=== PATIENT | female | born 1955 | race Caucasian/White ===

== ENCOUNTER 2018-11-07 15:07 | Emergency (ER) | payer MEDICARE, MEDICAID ==
[2018-11-07] MEDS ORDERED: Sodium Chloride 0.9% 10 ML Syringe FLUSH PRN (15:09)
[2018-11-07 15:57] LABS: ANION GAP 14.4; CHLORIDE,CL 102 mmol/L (101-111); SODIUM,NA 137 mmol/L (135-145)
[2018-11-07 16:24] VITALS: BP 102/51
[2018-11-07] MEDS ORDERED: Sodium Chloride 0.9% 500 ML IV SCH (16:30)
--- NOTE | 2018-11-07 17:06 | EDM.PDOC ---
Scribed by Vandana Aden 11/07/18 1538 for Mg Harvey MD <Margo Curtis R - Last Filed: 11/07/18 16:50> ED HPI GENERAL MEDICAL PROBLEM - General Chief Complaint: Neurological Problem Stated Complaint: UNKNOWN-AMBULANCE Time Seen by Provider: 11/07/18 15:07 - Related Data Allergies Allergy/AdvReac Type Severity Reaction Status Date / Time codeine Allergy Fatigue Verified 11/07/18 15:17 lactose Allergy Abdominal Verified 11/07/18 15:17 Pain tramadol Allergy Nausea Verified 11/07/18 15:17 Home Meds: Home Meds Aspirin [Halfprin] 81 mg PO BRK 03/02/15 [History] Cyclobenzaprine [Flexeril] 10 mg PO BEDTIME 03/02/15 [History] Fexofenadine [[place]] 180 mg PO DAILY 03/02/15 [History] Gabapentin [Neurontin] 300 mg PO BID 03/02/15 [History] Insulin Detemir [Levemir] 70 unit SQ BEDTIME 03/02/15 [History] Omeprazole [Prilosec] 20 mg PO BID 03/02/15 [History] metFORMIN HCl [Metformin HCl] 1,000 mg PO BID 03/02/15 [History] Benzonatate [Tessalon Perles] 100 mg PO TID PRN 09/22/16 [History] Course - Vital Signs Last Recorded V/S: Last Vital Signs Temp 36.6 C 11/07/18 15:09 Pulse 62 11/07/18 16:24 Resp 8 L 11/07/18 16:24 BP 102/51 L 11/07/18 16:24 Pulse Ox 94 L 11/07/18 16:24 - Orders/Labs/Meds Orders: Active Orders 24 hr Category Date Time Status Blood Glucose Check, Bedside [RC] ONETIME Care 11/07/18 15:09 Active EKG 12 Lead [EKG Documentation Completion] [RC] STAT Care 11/07/18 15:09 Active Peripheral IV Care [RC] . DIRECTED Care 11/07/18 15:10 Active CULTURE URINE [RM] Stat Lab 11/07/18 15:37 Received Sodium Chloride 0.9% [Normal Saline] 500 ml Med 11/07/18 16:30 Active IV .BOLUS Sodium Chloride 0.9% [Saline Flush] Med 11/07/18 15:09 Active 10 ml FLUSH ASDIRECTED PRN Peripheral IV Insertion Adult [OM.PC] Stat Oth 11/07/18 15:09 Ordered Medication Orders Sodium Chloride (Normal Saline) 500 mls @ 999 mls/hr IV .BOLUS KEITH Last Admin: 11/07/18 16:22 Dose: 999 mls/hr Sodium Chloride (Saline Flush) 10 ml FLUSH ASDIRECTED PRN PRN Reason: Keep Vein Open Last Admin: 11/07/18 15:28 Dose: 10 ml Labs: Laboratory Tests 11/07/18 11/07/18 11/07/18 Range/Units 15:30 15:30 15:30 WBC 4.6 L (5.0-10.0) 10^3/uL RBC 3.77 L (4.2-5.4) 10^6/uL Hgb 11.2 L (12.0-16.0) g/dL Hct 35.2 L (37.0-47.0) % MCV 93.4 D (80-100) fL MCH 29.7 (27.0-34.0) pg MCHC 31.8 L (33.0-35.0) g/dL Plt Count 108 L (150-450) 10^3/uL Neut % (Auto) 59.7 (42.2-75.2) % Lymph % (Auto) 26.7 (20.5-50.1) % Henry % (Auto) 13.4 H (2-8) % Eos % (Auto) 0.0 L (1.0-3.0) % Baso % (Auto) 0.2 (0.0-1.0) % PT 14.6 H (9.0-12.0) SEC INR 1.5 H (0.9-1.2) APTT 25.7 (22.0-34.0) SEC Sodium 137 (135-145) mmol/L Potassium 3.4 L (3.6-5.0) mmol/L Chloride 102 (101-111) mmol/L Carbon Dioxide 24.0 (21.0-31.0) mmol/L Anion Gap 14.4 BUN 21 H (7-18) mg/dL Creatinine 0.7 (0.6-1.3) mg/dL Est Cr Clr Drug Dosing 72.53 mL/min Estimated GFR (MDRD) > 60 BUN/Creatinine Ratio 30.00 Glucose 187 H (74-105) mg/dL Calcium 8.6 (8.4-10.2) mg/dl Total Bilirubin 1.8 H (0.2-1.0) mg/dL AST 37 (10-42) IU/L ALT 22 (10-60) IU/L Alkaline Phosphatase 143 H (42-121) IU/L Ammonia (11-35) umol/L Troponin I < 0.02 (0.00-0.02) ng/ml Total Protein 7.7 (6.7-8.2) g/dl Albumin 2.9 L (3.2-5.5) g/dl Globulin 4.8 Albumin/Globulin Ratio 0.60 Amylase 35 (28-100) U/L Lipase 26 (22-51) U/L Urine Color (YELLOW) Urine Appearance (CLEAR) Urine pH (5.0-9.0) Ur Specific [place] (1.005-1.030) Urine Protein (NEGATIVE) Urine Glucose (UA) (NEGATIVE) Urine Ketones (NEGATIVE) Urine Occult Blood (NEGATIVE) Urine Nitrite (NEGATIVE) Urine Bilirubin (NEGATIVE) Urine Urobilinogen (0.2-1.0) mg/dL Ur Leukocyte Esterase (NEGATIVE) Urine RBC /HPF Urine WBC (0-5/HPF) /HPF Ur Epithelial Cells /HPF Amorphous Sediment (0/HPF) /HPF Urine Bacteria (0-FEW/HPF) /HPF Urine Mucus /LPF Urine Opiates Screen (NEGATIVE) Ur Oxycodone Screen (NEGATIVE) Urine Methadone Screen (NEGATIVE) Ur Barbiturates Screen (NEGATIVE) U Tricyclic Antidepress (NEGATIVE) Ur Phencyclidine Scrn (NEGATIVE) Ur Amphetamine Screen (NEGATIVE) U Methamphetamines Scrn (NEGATIVE) Urine MDMA Screen (NEGATIVE) U Benzodiazepines Scrn (NEGATIVE) Urine Cocaine Screen (NEGATIVE) U Marijuana (THC) Screen (NEGATIVE) Ethyl Alcohol < 5 mg/dL 11/07/18 11/07/18 11/07/18 Range/Units 15:30 15:37 15:37 WBC (5.0-10.0) 10^3/uL RBC (4.2-5.4) 10^6/uL Hgb (12.0-16.0) g/dL Hct (37.0-47.0) % MCV (80-100) fL MCH (27.0-34.0) pg MCHC (33.0-35.0) g/dL Plt Count (150-450) 10^3/uL Neut % (Auto) (42.2-75.2) % Lymph % (Auto) (20.5-50.1) % Henry % (Auto) (2-8) % Eos % (Auto) (1.0-3.0) % Baso % (Auto) (0.0-1.0) % PT (9.0-12.0) SEC INR (0.9-1.2) APTT (22.0-34.0) SEC Sodium (135-145) mmol/L Potassium (3.6-5.0) mmol/L Chloride (101-111) mmol/L Carbon Dioxide (21.0-31.0) mmol/L Anion Gap BUN (7-18) mg/dL Creatinine (0.6-1.3) mg/dL Est Cr Clr Drug Dosing mL/min Estimated GFR (MDRD) BUN/Creatinine Ratio Glucose (74-105) mg/dL Calcium (8.4-10.2) mg/dl Total Bilirubin (0.2-1.0) mg/dL AST (10-42) IU/L ALT (10-60) IU/L Alkaline Phosphatase (42-121) IU/L Ammonia 75 H (11-35) umol/L Troponin I (0.00-0.02) ng/ml Total Protein (6.7-8.2) g/dl Albumin (3.2-5.5) g/dl Globulin Albumin/Globulin Ratio Amylase (28-100) U/L Lipase (22-51) U/L Urine Color Yellow (YELLOW) Urine Appearance Slightly cloudy (CLEAR) Urine pH 5.5 (5.0-9.0) Ur Specific [place] 1.025 (1.005-1.030) Urine Protein 30 H (NEGATIVE) Urine Glucose (UA) 100 H (NEGATIVE) Urine Ketones Negative (NEGATIVE) Urine Occult Blood Small H (NEGATIVE) Urine Nitrite Negative (NEGATIVE) Urine Bilirubin Small H (NEGATIVE) Urine Urobilinogen 2.0 H (0.2-1.0) mg/dL Ur Leukocyte Esterase Small H (NEGATIVE) Urine RBC 5-10 H /HPF Urine WBC 30-40 H (0-5/HPF) /HPF Ur Epithelial Cells Few /HPF Amorphous Sediment Occasional (0/HPF) /HPF Urine Bacteria Few (0-FEW/HPF) /HPF Urine Mucus Rare /LPF Urine Opiates Screen Negative (NEGATIVE) Ur Oxycodone Screen Negative (NEGATIVE) Urine Methadone Screen Negative (NEGATIVE) Ur Barbiturates Screen Negative (NEGATIVE) U Tricyclic Antidepress Positive H (NEGATIVE) Ur Phencyclidine Scrn Negative (NEGATIVE) Ur Amphetamine Screen Negative (NEGATIVE) U Methamphetamines Scrn Negative (NEGATIVE) Urine MDMA Screen Negative (NEGATIVE) U Benzodiazepines Scrn Negative (NEGATIVE) Urine Cocaine Screen Negative (NEGATIVE) U Marijuana (THC) Screen Negative (NEGATIVE) Ethyl Alcohol mg/dL Meds: Medications Generic Name Dose Route Start Last Admin Trade Name Freq PRN Reason Stop Dose Admin Sodium Chloride 500 mls @ 999 mls/hr 11/07/18 16:30 11/07/18 16:22 Normal Saline IV 999 mls/hr .BOLUS KEITH Administration Sodium Chloride 10 ml 11/07/18 15:09 11/07/18 15:28 Saline Flush FLUSH 10 ml ASDIRECTED PRN Administration Keep Vein Open Departure - Departure Disposition: Home, Self-Care 01 Condition: Fair Clinical Impression: Hepatic encephalopathy, Pancytopenia, Hx of cirrhosis - Discharge Information *PRESCRIPTION DRUG MONITORING PROGRAM REVIEWED*: No *COPY OF PRESCRIPTION DRUG MONITORING REPORT IN PATIENT HELEN: No Instructions: Anemia, Hepatic Encephalopathy, Cirrhosis Forms: ED Department Discharge Additional Instructions: RX: Lactulose solution #[id number] take 30ml PO BID continuing taking until follow up with primary care provider. (Medication causes diarrhea) - My Orders Last 24 Hours: My Active Orders 11/07/18 15:09 Blood Glucose Check, Bedside [RC] ONETIME EKG 12 Lead [EKG Documentation Completion] [RC] STAT Sodium Chloride 0.9% [Saline Flush] 10 ml FLUSH ASDIRECTED PRN Peripheral IV Insertion Adult [OM.PC] Stat 11/07/18 15:10 Peripheral IV Care [RC] . DIRECTED 11/07/18 15:37 CULTURE URINE [RM] Stat - Assessment/Plan Last 24 Hours: My Active Orders 11/07/18 15:09 Blood Glucose Check, Bedside [RC] ONETIME EKG 12 Lead [EKG Documentation Completion] [RC] STAT Sodium Chloride 0.9% [Saline Flush] 10 ml FLUSH ASDIRECTED PRN Peripheral IV Insertion Adult [OM.PC] Stat 11/07/18 15:10 Peripheral IV Care [RC] . DIRECTED 11/07/18 15:37 CULTURE URINE [RM] Stat <Mg Harvey - Last Filed: 11/07/18 17:06> ED HPI GENERAL MEDICAL PROBLEM - General Source of Information: Reports: Patient, EMS, EMS Notes Reviewed, RN, RN Notes Reviewed History Limitations: Reports: No Limitations - History of Present Illness INITIAL COMMENTS - FREE TEXT/NARRATIVE: Patient came in by [facility]. Family called the ambulance due to confusion. Patient had a EGD on 11/04/18 in [place]. Patient is unsure of year and day. Knows location and president. family states she has been groggy since EGD. She has a history of esophageal varies and cirrhosis. Denies nausea and vomiting. Duration: Day(s): (3), Constant Location: Reports: Generalized Improves with: Reports: None Worsens with: Reports: None Past Medical History Cardiovascular History: Reports: Hypertension Gastrointestinal History: Reports: Chronic Constipation, Cirrhosis, GI Bleed, Other (See Below) Other Gastrointestinal History: "bands done" for bleeding Other Musculoskeletal History: peripheral neuropathy Endocrine/Metabolic History: Reports: Diabetes, Type II - Infectious Disease History Infectious Disease History: Reports: Chicken Pox, Mumps Social & Family History - Family History Family Medical History: Unobtainable - Living Situation & Occupation Living situation: Reports: , with Spouse Occupation: Disabled ED ROS GENERAL - Review of Systems Review Of Systems: ROS reveals no pertinent complaints other than HPI. Endocrine: Reports: High Glucose (type 2 diabetes requiring insulin) GI/Abdominal: Reports: Other (abdominal distention.) Skin: Reports: Change in Color (bilateral feet red with dry skin) Neurological: Reports: Confusion Psychiatric: Reports: No Symptoms Hematologic/Lymphatic: Reports: No Symptoms Immunologic: Reports: No Symptoms ED EXAM, GENERAL - Physical Exam Exam: See Below Exam Limited By: No Limitations General Appearance: Alert, WD/WN, Obese Eye Exam: Bilateral Eye: Normal Inspection (no scleral icterus), PERRL Ears: Normal External Exam, Normal Canal, Hearing Grossly Normal, Normal TMs Nose: Normal Inspection, Normal Mucosa, No Blood Throat/Mouth: Normal Inspection, Normal Lips, Normal Gums, Normal Oropharynx, Normal Voice, No Airway Compromise Head: Atraumatic, Normocephalic Neck: Normal Inspection, Supple, Non-Tender, Full Range of Motion Respiratory/Chest: No Respiratory Distress, Lungs Clear, Normal Breath Sounds, No Accessory Muscle Use, Chest Non-Tender Cardiovascular: Normal Peripheral Pulses, Regular Rate, Rhythm, No Edema, No Gallop, No JVD, No Murmur, No Rub Peripheral Pulses: 2+: Posterior Tibial (L), Posterior Tibial (R), Dorsalis Pedis (L), Dorsalis Pedis (R) GI/Abdominal: Normal Bowel Sounds, Non-Tender, Distended. No: No Abnormal Bruit , Guarding, Rigid, Rebound Rectal (Female) Exam: Deferred Back Exam: Normal Inspection, Full Range of Motion, NT Extremities: Normal Inspection, Normal Range of Motion, Non-Tender, Normal Capillary Refill, No Pedal Edema Neurological: Alert, Oriented (to person and place), No Motor/Sensory Deficits, Confused Psychiatric: Normal Affect, Normal Mood Skin Exam: Warm, Dry, Erythema (dry erythemous skin to bilateral feet, no open sores). No: Jaundice Lymphatic: No Adenopathy EKG INTERPRETATION EKG Date: 11/07/18 Time: 15:25 Rhythm: Other (sinus rhythm) [place]: RAD-Right [place] Deviation P-Wave: Present QRS: Normal ST-T: Other (nonwspecific T abnormalities, diffuse leads.) QT: Prolonged Course - Vital Signs Last Recorded V/S: Last Vital Signs Temp 36.6 C 11/07/18 15:09 Pulse 62 11/07/18 16:24 Resp 8 L 11/07/18 16:24 BP 102/51 L 11/07/18 16:24 Pulse Ox 94 L 11/07/18 16:24 - Orders/Labs/Meds Orders: Active Orders 24 hr Category Date Time Status Blood Glucose Check, Bedside [] ONETIME Care 11/07/18 15:09 Active EKG 12 Lead [EKG Documentation Completion] [RC] STAT Care 11/07/18 15:09 Active Peripheral IV Care [RC] . DIRECTED Care 11/07/18 15:10 Active CULTURE URINE [] Stat Lab 11/07/18 15:37 Received Sodium Chloride 0.9% [Normal Saline] 500 ml Med 11/07/18 16:30 Active IV .BOLUS Sodium Chloride 0.9% [Saline Flush] Med 11/07/18 15:09 Active 10 ml FLUSH ASDIRECTED PRN Peripheral IV Insertion Adult [OM.PC] Stat Oth 11/07/18 15:09 Ordered Medication Orders Sodium Chloride (Normal Saline) 500 mls @ 999 mls/hr IV .BOLUS KEITH Last Admin: 11/07/18 16:22 Dose: 999 mls/hr Sodium Chloride (Saline Flush) 10 ml FLUSH ASDIRECTED PRN PRN Reason: Keep Vein Open Last Admin: 11/07/18 15:28 Dose: 10 ml Labs: Laboratory Tests 11/07/18 11/07/18 11/07/18 Range/Units 15:30 15:30 15:30 WBC 4.6 L (5.0-10.0) 10^3/uL RBC 3.77 L (4.2-5.4) 10^6/uL Hgb 11.2 L (12.0-16.0) g/dL Hct 35.2 L (37.0-47.0) % MCV 93.4 D (80-100) fL MCH 29.7 (27.0-34.0) pg MCHC 31.8 L (33.0-35.0) g/dL Plt Count 108 L (150-450) 10^3/uL Neut % (Auto) 59.7 (42.2-75.2) % Lymph % (Auto) 26.7 (20.5-50.1) % Henry % (Auto) 13.4 H (2-8) % Eos % (Auto) 0.0 L (1.0-3.0) % Baso % (Auto) 0.2 (0.0-1.0) % PT 14.6 H (9.0-12.0) SEC INR 1.5 H (0.9-1.2) APTT 25.7 (22.0-34.0) SEC Sodium 137 (135-145) mmol/L Potassium 3.4 L (3.6-5.0) mmol/L Chloride 102 (101-111) mmol/L Carbon Dioxide 24.0 (21.0-31.0) mmol/L Anion Gap 14.4 BUN 21 H (7-18) mg/dL Creatinine 0.7 (0.6-1.3) mg/dL Est Cr Clr Drug Dosing 72.53 mL/min Estimated GFR (MDRD) > 60 BUN/Creatinine Ratio 30.00 Glucose 187 H (74-105) mg/dL Calcium 8.6 (8.4-10.2) mg/dl Total Bilirubin 1.8 H (0.2-1.0) mg/dL AST 37 (10-42) IU/L ALT 22 (10-60) IU/L Alkaline Phosphatase 143 H (42-121) IU/L Ammonia (11-35) umol/L Troponin I < 0.02 (0.00-0.02) ng/ml Total Protein 7.7 (6.7-8.2) g/dl Albumin 2.9 L (3.2-5.5) g/dl Globulin 4.8 Albumin/Globulin Ratio 0.60 Amylase 35 (28-100) U/L Lipase 26 (22-51) U/L Urine Color (YELLOW) Urine Appearance (CLEAR) Urine pH (5.0-9.0) Ur Specific [place] (1.005-1.030) Urine Protein (NEGATIVE) Urine Glucose (UA) (NEGATIVE) Urine Ketones (NEGATIVE) Urine Occult Blood (NEGATIVE) Urine Nitrite (NEGATIVE) Urine Bilirubin (NEGATIVE) Urine Urobilinogen (0.2-1.0) mg/dL Ur Leukocyte Esterase (NEGATIVE) Urine RBC /HPF Urine WBC (0-5/HPF) /HPF Ur Epithelial Cells /HPF Amorphous Sediment (0/HPF) /HPF Urine Bacteria (0-FEW/HPF) /HPF Urine Mucus /LPF Urine Opiates Screen (NEGATIVE) Ur Oxycodone Screen (NEGATIVE) Urine Methadone Screen (NEGATIVE) Ur Barbiturates Screen (NEGATIVE) U Tricyclic Antidepress (NEGATIVE) Ur Phencyclidine Scrn (NEGATIVE) Ur Amphetamine Screen (NEGATIVE) U Methamphetamines Scrn (NEGATIVE) Urine MDMA Screen (NEGATIVE) U Benzodiazepines Scrn (NEGATIVE) Urine Cocaine Screen (NEGATIVE) U Marijuana (THC) Screen (NEGATIVE) Ethyl Alcohol < 5 mg/dL 11/07/18 11/07/18 11/07/18 Range/Units 15:30 15:37 15:37 WBC (5.0-10.0) 10^3/uL RBC (4.2-5.4) 10^6/uL Hgb (12.0-16.0) g/dL Hct (37.0-47.0) % MCV (80-100) fL MCH (27.0-34.0) pg MCHC (33.0-35.0) g/dL Plt Count (150-450) 10^3/uL Neut % (Auto) (42.2-75.2) % Lymph % (Auto) (20.5-50.1) % Henry % (Auto) (2-8) % Eos % (Auto) (1.0-3.0) % Baso % (Auto) (0.0-1.0) % PT (9.0-12.0) SEC INR (0.9-1.2) APTT (22.0-34.0) SEC Sodium (135-145) mmol/L Potassium (3.6-5.0) mmol/L Chloride (101-111) mmol/L Carbon Dioxide (21.0-31.0) mmol/L Anion Gap BUN (7-18) mg/dL Creatinine (0.6-1.3) mg/dL Est Cr Clr Drug Dosing mL/min Estimated GFR (MDRD) BUN/Creatinine Ratio Glucose (74-105) mg/dL Calcium (8.4-10.2) mg/dl Total Bilirubin (0.2-1.0) mg/dL AST (10-42) IU/L ALT (10-60) IU/L Alkaline Phosphatase (42-121) IU/L Ammonia 75 H (11-35) umol/L Troponin I (0.00-0.02) ng/ml Total Protein (6.7-8.2) g/dl Albumin (3.2-5.5) g/dl Globulin Albumin/Globulin Ratio Amylase (28-100) U/L Lipase (22-51) U/L Urine Color Yellow (YELLOW) Urine Appearance Slightly cloudy (CLEAR) Urine pH 5.5 (5.0-9.0) Ur Specific [place] 1.025 (1.005-1.030) Urine Protein 30 H (NEGATIVE) Urine Glucose (UA) 100 H (NEGATIVE) Urine Ketones Negative (NEGATIVE) Urine Occult Blood Small H (NEGATIVE) Urine Nitrite Negative (NEGATIVE) Urine Bilirubin Small H (NEGATIVE) Urine Urobilinogen 2.0 H (0.2-1.0) mg/dL Ur Leukocyte Esterase Small H (NEGATIVE) Urine RBC 5-10 H /HPF Urine WBC 30-40 H (0-5/HPF) /HPF Ur Epithelial Cells Few /HPF Amorphous Sediment Occasional (0/HPF) /HPF Urine Bacteria Few (0-FEW/HPF) /HPF Urine Mucus Rare /LPF Urine Opiates Screen Negative (NEGATIVE) Ur Oxycodone Screen Negative (NEGATIVE) Urine Methadone Screen Negative (NEGATIVE) Ur Barbiturates Screen Negative (NEGATIVE) U Tricyclic Antidepress Positive H (NEGATIVE) Ur Phencyclidine Scrn Negative (NEGATIVE) Ur Amphetamine Screen Negative (NEGATIVE) U Methamphetamines Scrn Negative (NEGATIVE) Urine MDMA Screen Negative (NEGATIVE) U Benzodiazepines Scrn Negative (NEGATIVE) Urine Cocaine Screen Negative (NEGATIVE) U Marijuana (THC) Screen Negative (NEGATIVE) Ethyl Alcohol mg/dL Meds: Medications Generic Name Dose Route Start Last Admin Trade Name Freq PRN Reason Stop Dose Admin Sodium Chloride 500 mls @ 999 mls/hr 11/07/18 16:30 11/07/18 16:22 Normal Saline IV 999 mls/hr .BOLUS KEITH Administration Sodium Chloride 10 ml 11/07/18 15:09 11/07/18 15:28 Saline Flush FLUSH 10 ml ASDIRECTED PRN Administration Keep Vein Open - Re-Assessments/Exams Free Text/Narrative Re-Assessment/Exam: 11/07/18 17:02 Pt with very mild confusion, able to carry on an appropriate conversation and answer most questions with reasonable accuracy. Pt's is home with her at all times. Her serum ammonia is 75, not on chronic lactulose. I discussed admission with the pt, but her and her decline admission and prefer to try lactulose at home. They are aware of the need to return to the ER if the confusion worsens. Free Text/Narrative Re-Assessment/Exam: 11/07/18 17:04 I personally performed or re-performed the physical examination and medical decision making. I have verified all student documentation or findings, including history, physical exam and/or medical decision making. Departure - Departure Time of Disposition: 17:00 - My Orders Last 24 Hours: My Active Orders 11/07/18 15:09 Blood Glucose Check, Bedside [RC] ONETIME EKG 12 Lead [EKG Documentation Completion] [RC] STAT Sodium Chloride 0.9% [Saline Flush] 10 ml FLUSH ASDIRECTED PRN Peripheral IV Insertion Adult [OM.PC] Stat 11/07/18 15:10 Peripheral IV Care [RC] . DIRECTED 11/07/18 15:37 CULTURE URINE [RM] Stat - Assessment/Plan Last 24 Hours: My Active Orders 11/07/18 15:09 Blood Glucose Check, Bedside [RC] ONETIME EKG 12 Lead [EKG Documentation Completion] [RC] STAT Sodium Chloride 0.9% [Saline Flush] 10 ml FLUSH ASDIRECTED PRN Peripheral IV Insertion Adult [OM.PC] Stat 11/07/18 15:10 Peripheral IV Care [RC] . DIRECTED 11/07/18 15:37 CULTURE URINE [RM] Stat I have read and agree with the documentation that has been completed regarding this visit. By signing this record, I attest that the documentation was completed in my physical presence and is an accurate record of the encounter.
== END 2018-11-07 16:55 | disposition home or self-care (01) ==
LOC: DL.ED 15:07
DX: K72.90 Hepatic failure, unspecified without coma (principal); D61.818 Other pancytopenia; E11.41 Type 2 diabetes mellitus with diabetic mononeuropathy; Z87.19 Personal history of other diseases of the digestive system; Z88.5 Allergy status to narcotic agent; Z88.8 Allergy status to other drugs, medicaments and biological substances; Z79.899 Other long term (current) drug therapy
CPT/HCPCS: 36415; 80053; 80305; 81001; 82140; 82150; 82962; 83690; 84484; 85025; 85610; 85730; 87086; 87088; 87186; 93005; 99285; G0480; J7040

== ENCOUNTER 2019-02-10 23:35 | Emergency (ER) | payer MEDICARE, MEDICAID ==
[2019-02-11 00:14] LABS: ANION GAP 10.8; CHLORIDE,CL 101 mmol/L (101-111); SODIUM,NA 134 mmol/L (135-145)
[2019-02-11 00:28] VITALS: BP 98/61
[2019-02-11] MEDS ORDERED: Lactulose Soln 10 GM/15 ML 30 ML UD Cup PO ONE (00:34)
--- NOTE | 2019-02-11 00:56 | EDM.PDOC ---
ED HPI GENERAL MEDICAL PROBLEM - General Chief Complaint: Gastrointestinal Problem Stated Complaint: AMBULANCE-UNKNOWN Time Seen by Provider: 02/10/19 23:40 Source of Information: Reports: Patient, EMS History Limitations: Reports: No Limitations - History of Present Illness INITIAL COMMENTS - FREE TEXT/NARRATIVE: ED via [facility] with c/o abdomen swollen and SOB. Hx of cirrhosis , Reports PCP has been decreasing lactulose now down to 15ml, took dose before coming. Occasional cough. No fever. Denies abdominal pain. Shortness of breath started in afternoon and seemed to be worse tonight. - Related Data Allergies Allergy/AdvReac Type Severity Reaction Status Date / Time codeine Allergy Fatigue Verified 11/07/18 15:17 lactose Allergy Abdominal Verified 11/07/18 15:17 Pain tramadol Allergy Nausea Verified 11/07/18 15:17 Home Meds: Home Meds Aspirin [Halfprin] 81 mg PO BRK 03/02/15 [History] Cyclobenzaprine [Flexeril] 10 mg PO BEDTIME 03/02/15 [History] Fexofenadine [[place]] 180 mg PO DAILY 03/02/15 [History] Gabapentin [Neurontin] 300 mg PO BID 03/02/15 [History] Insulin Detemir [Levemir] 70 unit SQ BEDTIME 03/02/15 [History] Omeprazole [Prilosec] 20 mg PO BID 03/02/15 [History] metFORMIN HCl [Metformin HCl] 1,000 mg PO BID 03/02/15 [History] Benzonatate [Tessalon Perles] 100 mg PO TID PRN 09/22/16 [History] Past Medical History Cardiovascular History: Reports: Hypertension Gastrointestinal History: Reports: Chronic Constipation, Cirrhosis, GI Bleed, Other (See Below) Other Gastrointestinal History: "bands done" for bleeding Genitourinary History: Reports: None Other Musculoskeletal History: peripheral neuropathy Neurological History: Reports: None Psychiatric History: Reports: None Endocrine/Metabolic History: Reports: Diabetes, Type II Hematologic History: Reports: None Immunologic History: Reports: None Oncologic (Cancer) History: Reports: None Dermatologic History: Reports: None - Infectious Disease History Infectious Disease History: Reports: Chicken Pox, Mumps Social & Family History - Family History Family Medical History: Unobtainable - Tobacco Use Smoking Status *Q: Never Smoker - Caffeine Use Caffeine Use: Reports: Soda - Recreational Drug Use Recreational Drug Use: No - Living Situation & Occupation Living situation: Reports: , with Spouse Occupation: Disabled ED ROS GENERAL - Review of Systems Review Of Systems: See Below Constitutional: Reports: Weakness, Weight Gain HEENT: Reports: No Symptoms Respiratory: Reports: Shortness of Breath Cardiovascular: Reports: Orthopnea. Denies: Chest Pain, Palpitations GI/Abdominal: Reports: Distension. Denies: Abdominal Pain, Bloody Stool, Difficulty Swallowing Musculoskeletal: Reports: No Symptoms Neurological: Reports: No Symptoms ED EXAM, GENERAL - Physical Exam Exam: See Below Exam Limited By: No Limitations General Appearance: Alert, Mild Distress Eye Exam: Bilateral Eye: EOMI Nose: Normal Inspection Throat/Mouth: Normal Inspection Head: Atraumatic, Normocephalic Neck: Normal Inspection Respiratory/Chest: Decreased Breath Sounds, Crackles (bases) Cardiovascular: Normal Peripheral Pulses, Regular Rate, Rhythm GI/Abdominal: Distended, Abnormal Bowel Sounds (distant), Other (abdominal striations , pnedulous). No: Guarding, Rebound, Tender (Female) Exam: Other (wojciech area excoriated) Rectal (Female) Exam: Normal Rectal Tone Back Exam: Full Range of Motion Extremities: Normal Range of Motion Psychiatric: Normal Affect Skin Exam: Warm, Dry, Wound/Incision (multiple ulcers to feet and ankles dry, crusted.) Course - Vital Signs Last Recorded V/S: Last Vital Signs Temp 99.6 F 02/10/19 23:39 Pulse 70 02/11/19 00:27 Resp 19 02/11/19 00:27 BP 98/61 02/11/19 00:27 Pulse Ox 99 02/11/19 00:27 - Orders/Labs/Meds Orders: Active Orders 24 hr Category Date Time Status Blood Glucose Check, Bedside [RC] ONETIME Care 02/10/19 23:23 Active EKG 12 Lead [EKG Documentation Completion] [RC] URGENT Care 02/10/19 23:25 Active Salas Catheter Insertion [Insert Urinary Catheter] [OM. Care 02/11/19 00:15 Ordered PC] Q24H Urinary Catheter Assessment [RC] ASDIRECTED Care 02/11/19 00:16 Active CULTURE URINE [RM] Urgent Lab 02/11/19 00:26 Received Labs: Laboratory Tests 05/14/19 05/14/19 05/14/19 Range/Units 23:45 23:45 23:45 WBC 7.6 (5.0-10.0) 10^3/uL RBC 4.13 L (4.2-5.4) 10^6/uL Hgb 12.3 (12.0-16.0) g/dL Hct 39.2 (37.0-47.0) % MCV 94.9 (80-100) fL MCH 29.8 (27.0-34.0) pg MCHC 31.4 L (33.0-35.0) g/dL Plt Count 99 L (150-450) 10^3/uL Neut % (Auto) 67.4 (42.2-75.2) % Lymph % (Auto) 18.5 L (20.5-50.1) % Gregg % (Auto) 13.8 H (2-8) % Eos % (Auto) 0.0 L (1.0-3.0) % Baso % (Auto) 0.3 (0.0-1.0) % PT (9.0-12.0) SEC INR (0.9-1.2) Sodium 134 L (135-145) mmol/L Potassium 3.8 (3.6-5.0) mmol/L Chloride 101 (101-111) mmol/L Carbon Dioxide 26.0 (21.0-31.0) mmol/L Anion Gap 10.8 BUN 15 (7-18) mg/dL Creatinine 0.7 (0.6-1.3) mg/dL Est Cr Clr Drug Dosing 71.03 mL/min Estimated GFR (MDRD) > 60 BUN/Creatinine Ratio 21.42 Glucose 154 H (74-105) mg/dL Lactic Acid (0.5-2.2) mmol/L Calcium 8.3 L (8.4-10.2) mg/dl Total Bilirubin 2.5 H (0.2-1.0) mg/dL AST 36 (10-42) IU/L ALT 22 (10-60) IU/L Alkaline Phosphatase 127 H (42-121) IU/L Ammonia 188 H (11-35) umol/L Troponin I (0.00-0.02) ng/ml B-Natriuretic Peptide (0-100) pg/ml Total Protein 7.9 (6.7-8.2) g/dl Albumin 2.6 L (3.2-5.5) g/dl Globulin 5.3 Albumin/Globulin Ratio 0.49 Amylase 39 (28-100) U/L Lipase 29 (22-51) U/L Urine Color (YELLOW) Urine Appearance (CLEAR) Urine pH (5.0-9.0) Ur Specific [place] (1.005-1.030) Urine Protein (NEGATIVE) Urine Glucose (UA) (NEGATIVE) Urine Ketones (NEGATIVE) Urine Occult Blood (NEGATIVE) Urine Nitrite (NEGATIVE) Urine Bilirubin (NEGATIVE) Urine Urobilinogen (0.2-1.0) mg/dL Ur Leukocyte Esterase (NEGATIVE) Urine RBC /HPF Urine WBC (0-5/HPF) /HPF Ur Epithelial Cells (NOT SEEN) /HPF Amorphous Sediment (NOT SEEN) /HPF Urine Bacteria (0-FEW/HPF) /HPF Hyaline Casts (NOT SEEN) /LPF Urine Mucus (NOT SEEN) /LPF Ethyl Alcohol < 5 mg/dL 02/10/19 02/10/19 02/10/19 Range/Units 23:45 23:45 23:45 WBC (5.0-10.0) 10^3/uL RBC (4.2-5.4) 10^6/uL Hgb (12.0-16.0) g/dL Hct (37.0-47.0) % MCV (80-100) fL MCH (27.0-34.0) pg MCHC (33.0-35.0) g/dL Plt Count (150-450) 10^3/uL Neut % (Auto) (42.2-75.2) % Lymph % (Auto) (20.5-50.1) % Gregg % (Auto) (2-8) % Eos % (Auto) (1.0-3.0) % Baso % (Auto) (0.0-1.0) % PT 13.3 H (9.0-12.0) SEC INR 1.3 H (0.9-1.2) Sodium (135-145) mmol/L Potassium (3.6-5.0) mmol/L Chloride (101-111) mmol/L Carbon Dioxide (21.0-31.0) mmol/L Anion Gap BUN (7-18) mg/dL Creatinine (0.6-1.3) mg/dL Est Cr Clr Drug Dosing mL/min Estimated GFR (MDRD) BUN/Creatinine Ratio Glucose (74-105) mg/dL Lactic Acid 1.9 (0.5-2.2) mmol/L Calcium (8.4-10.2) mg/dl Total Bilirubin (0.2-1.0) mg/dL AST (10-42) IU/L ALT (10-60) IU/L Alkaline Phosphatase (42-121) IU/L Ammonia (11-35) umol/L Troponin I < 0.02 (0.00-0.02) ng/ml B-Natriuretic Peptide 941 H (0-100) pg/ml Total Protein (6.7-8.2) g/dl Albumin (3.2-5.5) g/dl Globulin Albumin/Globulin Ratio Amylase (28-100) U/L Lipase (22-51) U/L Urine Color (YELLOW) Urine Appearance (CLEAR) Urine pH (5.0-9.0) Ur Specific [place] (1.005-1.030) Urine Protein (NEGATIVE) Urine Glucose (UA) (NEGATIVE) Urine Ketones (NEGATIVE) Urine Occult Blood (NEGATIVE) Urine Nitrite (NEGATIVE) Urine Bilirubin (NEGATIVE) Urine Urobilinogen (0.2-1.0) mg/dL Ur Leukocyte Esterase (NEGATIVE) Urine RBC /HPF Urine WBC (0-5/HPF) /HPF Ur Epithelial Cells (NOT SEEN) /HPF Amorphous Sediment (NOT SEEN) /HPF Urine Bacteria (0-FEW/HPF) /HPF Hyaline Casts (NOT SEEN) /LPF Urine Mucus (NOT SEEN) /LPF Ethyl Alcohol mg/dL 02/11/19 Range/Units 00:26 WBC (5.0-10.0) 10^3/uL RBC (4.2-5.4) 10^6/uL Hgb (12.0-16.0) g/dL Hct (37.0-47.0) % MCV (80-100) fL MCH (27.0-34.0) pg MCHC (33.0-35.0) g/dL Plt Count (150-450) 10^3/uL Neut % (Auto) (42.2-75.2) % Lymph % (Auto) (20.5-50.1) % Gregg % (Auto) (2-8) % Eos % (Auto) (1.0-3.0) % Baso % (Auto) (0.0-1.0) % PT (9.0-12.0) SEC INR (0.9-1.2) Sodium (135-145) mmol/L Potassium (3.6-5.0) mmol/L Chloride (101-111) mmol/L Carbon Dioxide (21.0-31.0) mmol/L Anion Gap BUN (7-18) mg/dL Creatinine (0.6-1.3) mg/dL Est Cr Clr Drug Dosing mL/min Estimated GFR (MDRD) BUN/Creatinine Ratio Glucose (74-105) mg/dL Lactic Acid (0.5-2.2) mmol/L Calcium (8.4-10.2) mg/dl Total Bilirubin (0.2-1.0) mg/dL AST (10-42) IU/L ALT (10-60) IU/L Alkaline Phosphatase (42-121) IU/L Ammonia (11-35) umol/L Troponin I (0.00-0.02) ng/ml B-Natriuretic Peptide (0-100) pg/ml Total Protein (6.7-8.2) g/dl Albumin (3.2-5.5) g/dl Globulin Albumin/Globulin Ratio Amylase (28-100) U/L Lipase (22-51) U/L Urine Color [place] (YELLOW) Urine Appearance Cloudy (CLEAR) Urine pH 5.0 (5.0-9.0) Ur Specific [place] 1.025 (1.005-1.030) Urine Protein 100 H (NEGATIVE) Urine Glucose (UA) Negative (NEGATIVE) Urine Ketones Trace H (NEGATIVE) Urine Occult Blood Small H (NEGATIVE) Urine Nitrite Positive H (NEGATIVE) Urine Bilirubin Moderate H (NEGATIVE) Urine Urobilinogen >=8.0 H (0.2-1.0) mg/dL Ur Leukocyte Esterase Small H (NEGATIVE) Urine RBC 5-10 H /HPF Urine WBC 20-30 H (0-5/HPF) /HPF Ur Epithelial Cells Few (NOT SEEN) /HPF Amorphous Sediment Few (NOT SEEN) /HPF Urine Bacteria Many H (0-FEW/HPF) /HPF Hyaline Casts Occasional H (NOT SEEN) /LPF Urine Mucus Few H (NOT SEEN) /LPF Ethyl Alcohol mg/dL Meds: Medications Discontinued Medications Generic Name Dose Route Start Last Admin Trade Name Freq PRN Reason Stop Dose Admin Lactulose 20 gm 02/11/19 00:34 02/11/19 00:59 Cephulac PO 02/11/19 00:35 20 gm ONETIME ONE Administration - Radiology Interpretation Free Text/Narrative:: [facility] [place] [facility] Final Radiology Report Call: [phone] assistance Online chat: [email or web address] Name: LAINEY MORALES Age: 63Years F Date: 02/11/2019 SSN: -- : [id number] Study: CT ABDOMEN/PELVIS WO Requesting Physician: GERHARD VANG Images: 282 Addl Studies: Provided Clinical History: Contrast: Without Contrast Medium: Contrast Amount: Contrast Method: Page 1 of 2 EXAM: CT Abdomen and Pelvis Without Contrast EXAM DATE/TIME: 02/11/2019 12:13 AM CLINICAL HISTORY: 63 years old, female; Signs and symptoms; Other: Abdomen distension, cirrhosis TECHNIQUE: Imaging protocol: Axial computed tomography images of the abdomen and pelvis without contrast. Coronal and sagittal reformatted images were created and reviewed. Radiation optimization: All CT scans at this facility use at least one of these dose optimization techniques: automated exposure control; mA and/or kV adjustment per patient size (includes targeted exams where dose is matched to clinical indication); or iterative reconstruction. COMPARISON: No relevant prior studies available. FINDINGS: Mediastinum: Esophageal varices are present. ABDOMEN: Liver: Liver appears small in size a mildly irregular contour compatible with cirrhosis. Gallbladder and bile ducts: Hyperdense material is seen within the gallbladder lumen compatible with gallbladder sludge. Pancreas: Normal. No ductal dilation. Spleen: Normal. No splenomegaly. Adrenals: Normal. No mass. Kidneys and ureters: Normal. No hydronephrosis. LAINEY MORALES | Final Radiology Report CONFIDENTIALITY STATEMENT This report is intended only for use by the referring physician, and only in accordance with law. If you received this in error, call [phone]. Page 2 of 2 Stomach and bowel: Edematous bowel wall pattern of the ascending colon possibly secondary to hypoproteinemia although colitis cannot be excluded. Appendix: No evidence of appendicitis. PELVIS: Bladder: Unremarkable as visualized. Reproductive: Unremarkable as visualized. ABDOMEN and PELVIS: Intraperitoneal space: A large amount of ascites is seen. Bones/joints: No acute fracture. No dislocation. Soft tissues: Unremarkable. Vasculature: Feces are seen within the thoracic and abdominal aorta and iliac arteries. There is recanalization of the umbilical vein. Lymph nodes: Retroperitoneal and periportal lymph nodes are seen below CT criteria for lymphadenopathy. IMPRESSION: 1. Cirrhosis with prominent ascites. 2. Recannulization of the umbilical vein and esophageal varices are seen. 3. Hyperdense material within the gallbladder lumen compatible with sludge. 4. Edematous bowel wall pattern of the ascending colon may be secondary to hypoproteinemia although colitis cannot be entirely excluded. 5. Retroperitoneal and periportal lymph nodes are present below CT criteria for lymphadenopathy. Thank you for allowing us to participate in the care of your patient. Dictated and Authenticated by: Nav Nunes MD 02/11/2019 12:26 AM Central Time ([place] & [place]) [facility] Final Radiology Report Call: [phone] assistance Online chat: [email or web address] Name: LAINEY MORALES Age: 63Years F Date: 02/10/2019 SSN: -- : 1955 Study: XR CHEST 1 VIEW FRONTAL Requesting Physician: GERHARD VANG Images: 1 Addl Studies: Provided Clinical History: Contrast: Contrast Medium: Contrast Amount: Contrast Method: CONFIDENTIALITY STATEMENT This report is intended only for use by the referring physician, and only in accordance with law. If you received this in error, call [phone]. Page 1 of 1 EXAM: XR Chest, 1 View EXAM DATE/TIME: 02/10/2019 11:50 PM CLINICAL HISTORY: 63 years old, female; Signs and symptoms; Dyspnea TECHNIQUE: Imaging protocol: XR of the chest, 1 view. COMPARISON: CR Chest 2V 09/22/2016 2:38 PM FINDINGS: Lungs: Unremarkable. No consolidation. Pleural space: Unremarkable. No pleural effusion. No pneumothorax. Heart/Mediastinum: The cardiac profile is prominent. There is mild prominence and indistinctness of the vasculature and bilateral strandy hazy opacities present, findings suggesting cardiac decompensation or volume overload. Bones/joints: Unremarkable. IMPRESSION: Findings suggesting cardiac decompensation or volume overload. Thank you for allowing us to participate in the care of your patient. Dictated and Authenticated by: Nav Nunes MD 02/11/2019 12:14 AM Central Time ([place] & [place] - Re-Assessments/Exams Free Text/Narrative Re-Assessment/Exam: 02/11/19 01:05 Family at bedside, Patient conversing full sentences, responses slow at times. Code status discussed with patient, Family present. Patient does not want intubation or CPR. Dr Paramjit Solis accepting of patient. Tx via [facility]. Departure - Departure Time of Disposition: 01:01 Disposition: Home, Self-Care 01 Condition: Good Clinical Impression: Hx of esophageal varices, Cardiomegaly, Hyperammonemia, IDDM (insulin dependent diabetes mellitus), Diabetic ulcer of ankle Ascites Qualifiers: Ascites type: other type Qualified Code(s): R18.8 - Other ascites - Discharge Information *PRESCRIPTION DRUG MONITORING PROGRAM REVIEWED*: No *COPY OF PRESCRIPTION DRUG MONITORING REPORT IN PATIENT HELEN: No Forms: ED Department Discharge - My Orders Last 24 Hours: My Active Orders 02/10/19 23:23 Blood Glucose Check, Bedside [RC] ONETIME 02/10/19 23:25 EKG 12 Lead [EKG Documentation Completion] [RC] URGENT 02/11/19 00:15 Salas Catheter Insertion [Insert Urinary Catheter] [OM.PC] Q24H 02/11/19 00:16 Urinary Catheter Assessment [RC] ASDIRECTED 02/11/19 00:26 CULTURE URINE [RM] Urgent - Assessment/Plan Last 24 Hours: My Active Orders 02/10/19 23:23 Blood Glucose Check, Bedside [RC] ONETIME 02/10/19 23:25 EKG 12 Lead [EKG Documentation Completion] [RC] URGENT 02/11/19 00:15 Salas Catheter Insertion [Insert Urinary Catheter] [OM.PC] Q24H 02/11/19 00:16 Urinary Catheter Assessment [RC] ASDIRECTED 02/11/19 00:26 CULTURE URINE [RM] Urgent
== END 2019-02-11 01:10 | disposition home or self-care (01) ==
LOC: DL.ED 23:35
DX: R18.8 Other ascites (principal); E11.42 Type 2 diabetes mellitus with diabetic polyneuropathy; E11.621 Type 2 diabetes mellitus with foot ulcer; E72.20 Disorder of urea cycle metabolism, unspecified; I10 Essential (primary) hypertension; Z88.5 Allergy status to narcotic agent; Z79.899 Other long term (current) drug therapy; Z79.82 Long term (current) use of aspirin; Z79.4 Long term (current) use of insulin
CPT/HCPCS: 36415; 51702; 71045; 74176; 80053; 81001; 82140; 82150; 82272; 82962; 83605; 83690; 83880; 84484; 85025; 85610; 87086; 93005; 99285; A9270; G0480; 87088; 87186

== ENCOUNTER 2019-06-03 10:19 | Observation (INO) | payer MEDICARE, MEDICAID ==
--- NOTE | 2019-06-03 10:15 | EDM.PDOC ---
ED HPI GENERAL MEDICAL PROBLEM - General Chief Complaint: Neurological Problem Stated Complaint: AMBULANCE Time Seen by Provider: 06/03/19 10:14 Source of Information: Reports: Patient, EMS, Old Records, RN, RN Notes Reviewed History Limitations: Reports: Altered Mental Status - History of Present Illness INITIAL COMMENTS - FREE TEXT/NARRATIVE: Pt arrives to ER from home by ambulance with EMS reporting that they were called out to the house by a family member with report that the pt was confused and had been wandering around the house all night. Pt has Hx of cirrhosis and is known to have been noncompliant with Lactulose in the past. Pt is awake, alert, and pleasant, but very confused. She answers that her name is Amisha, but when asked her last name she first answers, "15", and when asked again she answers, "[place]". Pt denies pain. Pt is unable to provide any further history. No family is present at this time to obtain history from. Onset: Unknown/Unsure Duration: Constant, Getting Worse Location: Reports: Generalized Quality: Reports: Other (Denies pain) Severity: Severe Improves with: Reports: None Worsens with: Reports: None Associated Symptoms: Reports: No Other Symptoms - Related Data Allergies Allergy/AdvReac Type Severity Reaction Status Date / Time codeine Allergy Fatigue Verified 04/05/19 21:38 tramadol Allergy Nausea Verified 04/05/19 21:38 Home Meds: Home Meds Aspirin [Halfprin] 81 mg PO BRK 03/02/15 [History] Cyclobenzaprine [Flexeril] 10 mg PO BEDTIME PRN 03/02/15 [History] Fexofenadine [[place]] 180 mg PO DAILY 03/02/15 [History] Gabapentin [Neurontin] 300 mg PO DAILY 03/02/15 [History] Insulin Detemir [Levemir] 70 unit SQ BEDTIME 03/02/15 [History] Ferrous Sulfate 325 mg PO TID 06/03/19 [History] Gabapentin [Neurontin] 600 mg PO BEDTIME 06/03/19 [History] Lactulose [Chronulac] 30 ml PO ASDIRECTED 06/03/19 [History] Nadolol [Corgard] 20 mg PO DAILY 06/03/19 [History] Pantoprazole [ProTONIX] 40 mg PO BID 09/04/19 [History] Potassium Chloride 20 meq PO DAILY 06/03/19 [History] Spironolactone [Aldactone] 50 mg PO BID 06/03/19 [History] metFORMIN HCl [Metformin HCl] 1,500 mg PO DAILY 06/03/19 [History] Past Medical History HEENT History: Reports: Impaired Vision Cardiovascular History: Reports: Hypertension Gastrointestinal History: Reports: Chronic Constipation, Cirrhosis, GI Bleed, Other (See Below) Other Gastrointestinal History: "bands done" for bleeding Genitourinary History: Reports: None Other Musculoskeletal History: peripheral neuropathy Neurological History: Reports: None Psychiatric History: Reports: None Endocrine/Metabolic History: Reports: Diabetes, Type II Hematologic History: Reports: None Immunologic History: Reports: None Oncologic (Cancer) History: Reports: None Dermatologic History: Reports: None - Infectious Disease History Infectious Disease History: Reports: Chicken Pox, Mumps - Past Surgical History GI Surgical History: Reports: EGD, Other (See Below) (Banding of varices) Social & Family History - Family History Family Medical History: Unobtainable - Caffeine Use Caffeine Use: Reports: None - Living Situation & Occupation Living situation: Reports: , with Spouse Occupation: Disabled ED ROS GENERAL - Review of Systems Review Of Systems: Unable To Obtain ED EXAM, GENERAL - Physical Exam Exam: See Below Exam Limited By: Altered Mental Status General Appearance: Alert, No Apparent Distress, Obese, Other (Chronically ill appearing) Eye Exam: Bilateral Eye: EOMI, Normal Inspection (No scleral icterus), PERRL Ears: Hearing Grossly Normal Nose: Normal Inspection Throat/Mouth: Normal Inspection, Normal Lips, Normal Voice, No Airway Compromise Head: Atraumatic, Normocephalic Neck: Normal Inspection, Supple, Non-Tender, Full Range of Motion Respiratory/Chest: No Respiratory Distress, Lungs Clear, No Accessory Muscle Use , Chest Non-Tender, Decreased Breath Sounds Cardiovascular: Regular Rate, Rhythm, No Edema GI/Abdominal: Normal Bowel Sounds, Soft, Other (Protruberant abdomen with ascites fluid wave.). No: Guarding, Rigid, Rebound Extremities: Normal Range of Motion, Normal Capillary Refill, Other (Chronic purpleish discoloration of B/L feet). No: Joint Swelling Neurological: Alert, No Motor/Sensory Deficits, Confused Psychiatric: Normal Mood Skin Exam: Warm, Dry, Intact. No: Jaundice Course - Vital Signs Last Recorded V/S: Last Vital Signs Temp 97.8 F 06/03/19 10:14 Pulse 68 06/03/19 10:14 Resp 16 06/03/19 10:14 BP 96/52 L 06/03/19 10:14 Pulse Ox - Orders/Labs/Meds Orders: Active Orders 24 hr Category Date Time Status Blood Glucose Check, Bedside [RC] ONETIME Care 06/03/19 10:15 Active CULTURE URINE [RM] Stat Lab 06/03/19 10:35 Received UA W/MICROSCOPIC [URIN] Stat Lab 06/03/19 10:35 Results Labs: Laboratory Tests 06/03/19 06/03/19 06/03/19 Range/Units 10:23 10:23 10:23 WBC 4.0 L (5.0-10.0) 10^3/uL RBC 3.18 L (4.2-5.4) 10^6/uL Hgb 10.1 L (12.0-16.0) g/dL Hct 30.3 L (37.0-47.0) % MCV 95.3 (80-100) fL MCH 31.8 (27.0-34.0) pg MCHC 33.3 (33.0-35.0) g/dL Plt Count 73 L (150-450) 10^3/uL Neut % (Auto) 67.3 (42.2-75.2) % Lymph % (Auto) 19.5 L (20.5-50.1) % [place] % (Auto) 12.7 H (2-8) % Eos % (Auto) 0.0 L (1.0-3.0) % Baso % (Auto) 0.5 (0.0-1.0) % PT 11.1 (9.0-12.0) SEC INR 1.1 (0.9-1.2) APTT 24.8 (22.0-34.0) SEC Sodium 136 (135-145) mmol/L Potassium 3.8 (3.6-5.0) mmol/L Chloride 101 (101-111) mmol/L Carbon Dioxide 25.0 (21.0-31.0) mmol/L Anion Gap 13.8 BUN 15 (7-18) mg/dL Creatinine 0.8 (0.6-1.3) mg/dL Est Cr Clr Drug Dosing TNP Estimated GFR (MDRD) > 60 BUN/Creatinine Ratio 18.75 Glucose 126 H (74-105) mg/dL POC Glucose (70-105) mg/dl Lactic Acid (0.5-2.2) mmol/L Calcium 8.7 (8.4-10.2) mg/dl Total Bilirubin 1.6 H (0.2-1.0) mg/dL AST 42 (10-42) IU/L ALT 25 (10-60) IU/L Alkaline Phosphatase 147 H (42-121) IU/L Ammonia (11-35) umol/L B-Natriuretic Peptide 88 (0-100) pg/ml Total Protein 7.8 (6.7-8.2) g/dl Albumin 2.9 L (3.2-5.5) g/dl Globulin 4.9 Albumin/Globulin Ratio 0.59 Amylase 61 (28-100) U/L Lipase 36 (22-51) U/L Urine Color (YELLOW) Urine Appearance (CLEAR) Urine pH (5.0-9.0) Ur Specific [place] (1.005-1.030) Urine Protein (NEGATIVE) Urine Glucose (UA) (NEGATIVE) Urine Ketones (NEGATIVE) Urine Occult Blood (NEGATIVE) Urine Nitrite (NEGATIVE) Urine Bilirubin (NEGATIVE) Urine Urobilinogen (0.2-1.0) mg/dL Ur Leukocyte Esterase (NEGATIVE) Urine Opiates Screen (NEGATIVE) Ur Oxycodone Screen (NEGATIVE) Urine Methadone Screen (NEGATIVE) Ur Barbiturates Screen (NEGATIVE) U Tricyclic Antidepress (NEGATIVE) Ur Phencyclidine Scrn (NEGATIVE) Ur Amphetamine Screen (NEGATIVE) U Methamphetamines Scrn (NEGATIVE) Urine MDMA Screen (NEGATIVE) U Benzodiazepines Scrn (NEGATIVE) Urine Cocaine Screen (NEGATIVE) U Marijuana (THC) Screen (NEGATIVE) Ethyl Alcohol < 5 mg/dL 06/03/19 06/03/19 06/03/19 Range/Units 10:23 10:23 10:35 WBC (5.0-10.0) 10^3/uL RBC (4.2-5.4) 10^6/uL Hgb (12.0-16.0) g/dL Hct (37.0-47.0) % MCV (80-100) fL MCH (27.0-34.0) pg MCHC (33.0-35.0) g/dL Plt Count (150-450) 10^3/uL Neut % (Auto) (42.2-75.2) % Lymph % (Auto) (20.5-50.1) % [place] % (Auto) (2-8) % Eos % (Auto) (1.0-3.0) % Baso % (Auto) (0.0-1.0) % PT (9.0-12.0) SEC INR (0.9-1.2) APTT (22.0-34.0) SEC Sodium (135-145) mmol/L Potassium (3.6-5.0) mmol/L Chloride (101-111) mmol/L Carbon Dioxide (21.0-31.0) mmol/L Anion Gap BUN (7-18) mg/dL Creatinine (0.6-1.3) mg/dL Est Cr Clr Drug Dosing Estimated GFR (MDRD) BUN/Creatinine Ratio Glucose (74-105) mg/dL POC Glucose (70-105) mg/dl Lactic Acid 1.8 (0.5-2.2) mmol/L Calcium (8.4-10.2) mg/dl Total Bilirubin (0.2-1.0) mg/dL AST (10-42) IU/L ALT (10-60) IU/L Alkaline Phosphatase (42-121) IU/L Ammonia 98 H (11-35) umol/L B-Natriuretic Peptide (0-100) pg/ml Total Protein (6.7-8.2) g/dl Albumin (3.2-5.5) g/dl Globulin Albumin/Globulin Ratio Amylase (28-100) U/L Lipase (22-51) U/L Urine Color Yellow (YELLOW) Urine Appearance Clear (CLEAR) Urine pH 6.0 (5.0-9.0) Ur Specific [place] 1.025 (1.005-1.030) Urine Protein Negative (NEGATIVE) Urine Glucose (UA) Negative (NEGATIVE) Urine Ketones Negative (NEGATIVE) Urine Occult Blood Trace-intact H (NEGATIVE) Urine Nitrite Negative (NEGATIVE) Urine Bilirubin Negative (NEGATIVE) Urine Urobilinogen 2.0 H (0.2-1.0) mg/dL Ur Leukocyte Esterase Trace H (NEGATIVE) Urine Opiates Screen (NEGATIVE) Ur Oxycodone Screen (NEGATIVE) Urine Methadone Screen (NEGATIVE) Ur Barbiturates Screen (NEGATIVE) U Tricyclic Antidepress (NEGATIVE) Ur Phencyclidine Scrn (NEGATIVE) Ur Amphetamine Screen (NEGATIVE) U Methamphetamines Scrn (NEGATIVE) Urine MDMA Screen (NEGATIVE) U Benzodiazepines Scrn (NEGATIVE) Urine Cocaine Screen (NEGATIVE) U Marijuana (THC) Screen (NEGATIVE) Ethyl Alcohol mg/dL 06/03/19 06/03/19 Range/Units 10:35 10:38 WBC (5.0-10.0) 10^3/uL RBC (4.2-5.4) 10^6/uL Hgb (12.0-16.0) g/dL Hct (37.0-47.0) % MCV (80-100) fL MCH (27.0-34.0) pg MCHC (33.0-35.0) g/dL Plt Count (150-450) 10^3/uL Neut % (Auto) (42.2-75.2) % Lymph % (Auto) (20.5-50.1) % [place] % (Auto) (2-8) % Eos % (Auto) (1.0-3.0) % Baso % (Auto) (0.0-1.0) % PT (9.0-12.0) SEC INR (0.9-1.2) APTT (22.0-34.0) SEC Sodium (135-145) mmol/L Potassium (3.6-5.0) mmol/L Chloride (101-111) mmol/L Carbon Dioxide (21.0-31.0) mmol/L Anion Gap BUN (7-18) mg/dL Creatinine (0.6-1.3) mg/dL Est Cr Clr Drug Dosing Estimated GFR (MDRD) BUN/Creatinine Ratio Glucose (74-105) mg/dL POC Glucose 114 H (70-105) mg/dl Lactic Acid (0.5-2.2) mmol/L Calcium (8.4-10.2) mg/dl Total Bilirubin (0.2-1.0) mg/dL AST (10-42) IU/L ALT (10-60) IU/L Alkaline Phosphatase (42-121) IU/L Ammonia (11-35) umol/L B-Natriuretic Peptide (0-100) pg/ml Total Protein (6.7-8.2) g/dl Albumin (3.2-5.5) g/dl Globulin Albumin/Globulin Ratio Amylase (28-100) U/L Lipase (22-51) U/L Urine Color (YELLOW) Urine Appearance (CLEAR) Urine pH (5.0-9.0) Ur Specific [place] (1.005-1.030) Urine Protein (NEGATIVE) Urine Glucose (UA) (NEGATIVE) Urine Ketones (NEGATIVE) Urine Occult Blood (NEGATIVE) Urine Nitrite (NEGATIVE) Urine Bilirubin (NEGATIVE) Urine Urobilinogen (0.2-1.0) mg/dL Ur Leukocyte Esterase (NEGATIVE) Urine Opiates Screen Negative (NEGATIVE) Ur Oxycodone Screen Negative (NEGATIVE) Urine Methadone Screen Negative (NEGATIVE) Ur Barbiturates Screen Negative (NEGATIVE) U Tricyclic Antidepress Negative (NEGATIVE) Ur Phencyclidine Scrn Negative (NEGATIVE) Ur Amphetamine Screen Negative (NEGATIVE) U Methamphetamines Scrn Negative (NEGATIVE) Urine MDMA Screen Negative (NEGATIVE) U Benzodiazepines Scrn Negative (NEGATIVE) Urine Cocaine Screen Negative (NEGATIVE) U Marijuana (THC) Screen Negative (NEGATIVE) Ethyl Alcohol mg/dL Meds: Medications Discontinued Medications Generic Name Dose Route Start Last Admin Trade Name Freq PRN Reason Stop Dose Admin Lactulose 20 gm 06/03/19 10:56 06/03/19 11:05 Cephulac PO 06/03/19 10:57 20 gm ONETIME ONE Administration Departure - Departure Time of Disposition: 11:35 (admit to Dr. Newell) Disposition: Admitted As Inpatient 66 Condition: Fair Clinical Impression: Hepatic encephalopathy, Hx of cirrhosis, Non compliance w medication regimen, Chronic liver disease and cirrhosis - Discharge Information *PRESCRIPTION DRUG MONITORING PROGRAM REVIEWED*: Not Applicable *COPY OF PRESCRIPTION DRUG MONITORING REPORT IN PATIENT HELEN: Not Applicable Forms: ED Department Discharge - My Orders Last 24 Hours: My Active Orders 06/03/19 10:15 Blood Glucose Check, Bedside [RC] ONETIME 06/03/19 10:35 CULTURE URINE [RM] Stat UA W/MICROSCOPIC [URIN] Stat - Assessment/Plan Last 24 Hours: My Active Orders 06/03/19 10:15 Blood Glucose Check, Bedside [RC] ONETIME 06/03/19 10:35 CULTURE URINE [RM] Stat UA W/MICROSCOPIC [URIN] Stat
[2019-06-03 10:53] LABS: CHLORIDE,CL 101 mmol/L (101-111); SODIUM,NA 136 mmol/L (135-145)
[2019-06-03] MEDS ORDERED: Lactulose Soln 10 GM/15 ML 30 ML UD Cup PO ONE (10:56)
[2019-06-03 11:18] LABS: ANION GAP 13.8
[2019-06-03] MEDS ORDERED: Zolpidem 5 MG Tab PO PRN (13:08)
[2019-06-03] MEDS ORDERED: Sodium Chloride 0.9% 10 ML Syringe FLUSH PRN (13:08)
[2019-06-03] MEDS ORDERED: Ondansetron 4 MG Tab.DIS PO PRN (13:08)
[2019-06-03] MEDS ORDERED: Ondansetron 4 MG/2 ML SDV IVPUSH PRN (13:08)
--- NOTE | 2019-06-03 13:44 | PCM.HP ---
H&P History of Present Illness - General Date of Service: 06/03/19 Admit Problem/Dx: Admission Diagnosis/Problem Admission Diagnosis/Problem Hepatic encephalopathy - History of Present Illness Initial Comments - Free Text/Narative: 64-year-old lady with a history of hepatitic failure, hepatitic encephalopathy requiring multiple admissions. Limited information is obtainable since the patient is confused. The patient presented to the emergency room with confusion. Was found to have elevated ammonia level. When asking she says she is feeling fine. No upper and discomfort. She cannot tell me her name. She does not know her age. - Related Data Allergies/Adverse Reactions: Allergies Allergy/AdvReac Type Severity Reaction Status Date / Time codeine Allergy Fatigue Verified 06/03/19 12:22 tramadol Allergy Nausea Verified 06/03/19 12:22 Home Medications: Home Meds Aspirin [Halfprin] 81 mg PO BRK 03/02/15 [History] Cyclobenzaprine [Flexeril] 10 mg PO BEDTIME PRN 03/02/15 [History] Fexofenadine [[place]] 180 mg PO DAILY 03/02/15 [History] Gabapentin [Neurontin] 300 mg PO DAILY 03/02/15 [History] Insulin Detemir [Levemir] 70 unit SQ BEDTIME 03/02/15 [History] Ferrous Sulfate 325 mg PO TID 06/03/19 [History] Gabapentin [Neurontin] 600 mg PO BEDTIME 06/03/19 [History] Lactulose [Chronulac] 30 ml PO ASDIRECTED 06/03/19 [History] Nadolol [Corgard] 20 mg PO DAILY 06/03/19 [History] Pantoprazole [ProTONIX] 40 mg PO BID 06/03/19 [History] Potassium Chloride 20 meq PO DAILY 06/03/19 [History] Spironolactone [Aldactone] 50 mg PO BID 06/03/19 [History] metFORMIN HCl [Metformin HCl] 1,500 mg PO DAILY 06/03/19 [History] Past Medical History HEENT History: Reports: Hard of Hearing, Impaired Vision, Other (See Below) Other HEENT History: UPPER AND LOWER DENTURE PLATES Cardiovascular History: Reports: Hypertension, SOB on Exertion Gastrointestinal History: Reports: Chronic Constipation, Cirrhosis, GI Bleed, Other (See Below) Other Gastrointestinal History: "bands done" for bleeding Genitourinary History: Reports: None 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 Musculoskeletal History: peripheral neuropathy Neurological History: Reports: Other (See Below) Other Neuro History: HEPATIC ENCEPHALOPATHY Psychiatric History: Reports: Other (See Below) Other Psychiatric History: SHORT TERM MEMORY LOSS Endocrine/Metabolic History: Reports: Diabetes, Type II Hematologic History: Reports: Anemia, Blood Transfusion(s), Iron Deficiency Immunologic History: Reports: None Oncologic (Cancer) History: Reports: None Dermatologic History: Reports: None - Infectious Disease History Infectious Disease History: Reports: Chicken Pox, Mumps - Past Surgical History HEENT Surgical History: Reports: None GI Surgical History: Reports: Colonoscopy, EGD, Other (See Below) Endocrine Surgical History: Reports: None Neurological Surgical History: Reports: None Musculoskeletal Surgical History: Reports: None Dermatological Surgical History: Reports: None Social & Family History - Family History Family Medical History: Unobtainable - Tobacco Use Smoking Status *Q: Former Smoker Used Tobacco, but Quit: Yes Month/Year Tobacco Last Used: >20 YEARS AGO Second Hand Smoke Exposure: No - Caffeine Use Caffeine Use: Reports: Coffee Other Caffeine Use: COFFEE DAILY 1 CUP - Recreational Drug Use Recreational Drug Use: No - Living Situation & Occupation Living situation: Reports: , with Spouse Occupation: Disabled H&P Review of Systems - Review of Systems: Review Of Systems: See Below General: Denies: Fever Pulmonary: Denies: Shortness of Breath Cardiovascular: Denies: Chest Pain Gastrointestinal: Reports: Other (Ascites) Neurological: Reports: Confusion Exam - Exam Exam: See Below - Vital Signs Vital Signs: Last Vital Signs Temp 36.4 C 06/03/19 12:21 Pulse 72 06/03/19 12:21 Resp 14 06/03/19 12:21 BP 122/50 L 06/03/19 12:21 Pulse Ox 93 L 06/03/19 12:21 Weight: 86.183 kg - Exam General: Alert, Oriented Neck: Supple Lungs: Clear to Auscultation, Normal Respiratory Effort Cardiovascular: Regular Rate, Regular Rhythm GI/Abdominal Exam: Normal Bowel Sounds, Soft, Non-Tender, Other (Ascites) Extremities: No Pedal Edema - Patient Data Lab Results Last 24 hrs: Laboratory Results - last 24 hr 06/03/19 06/03/19 06/03/19 Range/Units 10:23 10:23 10:23 WBC 4.0 L (5.0-10.0) 10^3/uL RBC 3.18 L (4.2-5.4) 10^6/uL Hgb 10.1 L (12.0-16.0) g/dL Hct 30.3 L (37.0-47.0) % MCV 95.3 (80-100) fL MCH 31.8 (27.0-34.0) pg MCHC 33.3 (33.0-35.0) g/dL Plt Count 73 L (150-450) 10^3/uL Neut % (Auto) 67.3 (42.2-75.2) % Lymph % (Auto) 19.5 L (20.5-50.1) % [place] % (Auto) 12.7 H (2-8) % Eos % (Auto) 0.0 L (1.0-3.0) % Baso % (Auto) 0.5 (0.0-1.0) % PT 11.1 (9.0-12.0) SEC INR 1.1 (0.9-1.2) APTT 24.8 (22.0-34.0) SEC Sodium 136 (135-145) mmol/L Potassium 3.8 (3.6-5.0) mmol/L Chloride 101 (101-111) mmol/L Carbon Dioxide 25.0 (21.0-31.0) mmol/L Anion Gap 13.8 BUN 15 (7-18) mg/dL Creatinine 0.8 (0.6-1.3) mg/dL Est Cr Clr Drug Dosing TNP Estimated GFR (MDRD) > 60 BUN/Creatinine Ratio 18.75 Glucose 126 H (74-105) mg/dL POC Glucose (70-105) mg/dl Lactic Acid (0.5-2.2) mmol/L Calcium 8.7 (8.4-10.2) mg/dl Total Bilirubin 1.6 H (0.2-1.0) mg/dL AST 42 (10-42) IU/L ALT 25 (10-60) IU/L Alkaline Phosphatase 147 H (42-121) IU/L Ammonia (11-35) umol/L B-Natriuretic Peptide 88 (0-100) pg/ml Total Protein 7.8 (6.7-8.2) g/dl Albumin 2.9 L (3.2-5.5) g/dl Globulin 4.9 Albumin/Globulin Ratio 0.59 Amylase 61 (28-100) U/L Lipase 36 (22-51) U/L Urine Color (YELLOW) Urine Appearance (CLEAR) Urine pH (5.0-9.0) Ur Specific [place] (1.005-1.030) Urine Protein (NEGATIVE) Urine Glucose (UA) (NEGATIVE) Urine Ketones (NEGATIVE) Urine Occult Blood (NEGATIVE) Urine Nitrite (NEGATIVE) Urine Bilirubin (NEGATIVE) Urine Urobilinogen (0.2-1.0) mg/dL Ur Leukocyte Esterase (NEGATIVE) Urine RBC /HPF Urine WBC (0-5/HPF) /HPF Ur Epithelial Cells (NOT SEEN) /HPF Urine Bacteria (0-FEW/HPF) /HPF Hyaline Casts (NOT SEEN) /LPF Urine Mucus (NOT SEEN) /LPF Urine Opiates Screen (NEGATIVE) Ur Oxycodone Screen (NEGATIVE) Urine Methadone Screen (NEGATIVE) Ur Barbiturates Screen (NEGATIVE) U Tricyclic Antidepress (NEGATIVE) Ur Phencyclidine Scrn (NEGATIVE) Ur Amphetamine Screen (NEGATIVE) U Methamphetamines Scrn (NEGATIVE) Urine MDMA Screen (NEGATIVE) U Benzodiazepines Scrn (NEGATIVE) Urine Cocaine Screen (NEGATIVE) U Marijuana (THC) Screen (NEGATIVE) Ethyl Alcohol < 5 mg/dL 06/03/19 06/03/19 06/03/19 Range/Units 10:23 10:23 10:35 WBC (5.0-10.0) 10^3/uL RBC (4.2-5.4) 10^6/uL Hgb (12.0-16.0) g/dL Hct (37.0-47.0) % MCV (80-100) fL MCH (27.0-34.0) pg MCHC (33.0-35.0) g/dL Plt Count (150-450) 10^3/uL Neut % (Auto) (42.2-75.2) % Lymph % (Auto) (20.5-50.1) % [place] % (Auto) (2-8) % Eos % (Auto) (1.0-3.0) % Baso % (Auto) (0.0-1.0) % PT (9.0-12.0) SEC INR (0.9-1.2) APTT (22.0-34.0) SEC Sodium (135-145) mmol/L Potassium (3.6-5.0) mmol/L Chloride (101-111) mmol/L Carbon Dioxide (21.0-31.0) mmol/L Anion Gap BUN (7-18) mg/dL Creatinine (0.6-1.3) mg/dL Est Cr Clr Drug Dosing Estimated GFR (MDRD) BUN/Creatinine Ratio Glucose (74-105) mg/dL POC Glucose (70-105) mg/dl Lactic Acid 1.8 (0.5-2.2) mmol/L Calcium (8.4-10.2) mg/dl Total Bilirubin (0.2-1.0) mg/dL AST (10-42) IU/L ALT (10-60) IU/L Alkaline Phosphatase (42-121) IU/L Ammonia 98 H (11-35) umol/L B-Natriuretic Peptide (0-100) pg/ml Total Protein (6.7-8.2) g/dl Albumin (3.2-5.5) g/dl Globulin Albumin/Globulin Ratio Amylase (28-100) U/L Lipase (22-51) U/L Urine Color Yellow (YELLOW) Urine Appearance Clear (CLEAR) Urine pH 6.0 (5.0-9.0) Ur Specific [place] 1.025 (1.005-1.030) Urine Protein Negative (NEGATIVE) Urine Glucose (UA) Negative (NEGATIVE) Urine Ketones Negative (NEGATIVE) Urine Occult Blood Trace-intact H (NEGATIVE) Urine Nitrite Negative (NEGATIVE) Urine Bilirubin Negative (NEGATIVE) Urine Urobilinogen 2.0 H (0.2-1.0) mg/dL Ur Leukocyte Esterase Trace H (NEGATIVE) Urine RBC 5-10 H /HPF Urine WBC 5-10 H (0-5/HPF) /HPF Ur Epithelial Cells Moderate H (NOT SEEN) /HPF Urine Bacteria Few (0-FEW/HPF) /HPF Hyaline Casts Rare H (NOT SEEN) /LPF Urine Mucus Rare (NOT SEEN) /LPF Urine Opiates Screen (NEGATIVE) Ur Oxycodone Screen (NEGATIVE) Urine Methadone Screen (NEGATIVE) Ur Barbiturates Screen (NEGATIVE) U Tricyclic Antidepress (NEGATIVE) Ur Phencyclidine Scrn (NEGATIVE) Ur Amphetamine Screen (NEGATIVE) U Methamphetamines Scrn (NEGATIVE) Urine MDMA Screen (NEGATIVE) U Benzodiazepines Scrn (NEGATIVE) Urine Cocaine Screen (NEGATIVE) U Marijuana (THC) Screen (NEGATIVE) Ethyl Alcohol mg/dL 06/03/19 06/03/19 Range/Units 10:35 10:38 WBC (5.0-10.0) 10^3/uL RBC (4.2-5.4) 10^6/uL Hgb (12.0-16.0) g/dL Hct (37.0-47.0) % MCV (80-100) fL MCH (27.0-34.0) pg MCHC (33.0-35.0) g/dL Plt Count (150-450) 10^3/uL Neut % (Auto) (42.2-75.2) % Lymph % (Auto) (20.5-50.1) % [place] % (Auto) (2-8) % Eos % (Auto) (1.0-3.0) % Baso % (Auto) (0.0-1.0) % PT (9.0-12.0) SEC INR (0.9-1.2) APTT (22.0-34.0) SEC Sodium (135-145) mmol/L Potassium (3.6-5.0) mmol/L Chloride (101-111) mmol/L Carbon Dioxide (21.0-31.0) mmol/L Anion Gap BUN (7-18) mg/dL Creatinine (0.6-1.3) mg/dL Est Cr Clr Drug Dosing Estimated GFR (MDRD) BUN/Creatinine Ratio Glucose (74-105) mg/dL POC Glucose 114 H (70-105) mg/dl Lactic Acid (0.5-2.2) mmol/L Calcium (8.4-10.2) mg/dl Total Bilirubin (0.2-1.0) mg/dL AST (10-42) IU/L ALT (10-60) IU/L Alkaline Phosphatase (42-121) IU/L Ammonia (11-35) umol/L B-Natriuretic Peptide (0-100) pg/ml Total Protein (6.7-8.2) g/dl Albumin (3.2-5.5) g/dl Globulin Albumin/Globulin Ratio Amylase (28-100) U/L Lipase (22-51) U/L Urine Color (YELLOW) Urine Appearance (CLEAR) Urine pH (5.0-9.0) Ur Specific [place] (1.005-1.030) Urine Protein (NEGATIVE) Urine Glucose (UA) (NEGATIVE) Urine Ketones (NEGATIVE) Urine Occult Blood (NEGATIVE) Urine Nitrite (NEGATIVE) Urine Bilirubin (NEGATIVE) Urine Urobilinogen (0.2-1.0) mg/dL Ur Leukocyte Esterase (NEGATIVE) Urine RBC /HPF Urine WBC (0-5/HPF) /HPF Ur Epithelial Cells (NOT SEEN) /HPF Urine Bacteria (0-FEW/HPF) /HPF Hyaline Casts (NOT SEEN) /LPF Urine Mucus (NOT SEEN) /LPF Urine Opiates Screen Negative (NEGATIVE) Ur Oxycodone Screen Negative (NEGATIVE) Urine Methadone Screen Negative (NEGATIVE) Ur Barbiturates Screen Negative (NEGATIVE) U Tricyclic Antidepress Negative (NEGATIVE) Ur Phencyclidine Scrn Negative (NEGATIVE) Ur Amphetamine Screen Negative (NEGATIVE) U Methamphetamines Scrn Negative (NEGATIVE) Urine MDMA Screen Negative (NEGATIVE) U Benzodiazepines Scrn Negative (NEGATIVE) Urine Cocaine Screen Negative (NEGATIVE) U Marijuana (THC) Screen Negative (NEGATIVE) Ethyl Alcohol mg/dL Result Diagrams: 06/03/19 10:23 06/03/19 10:23 - Problem List (1) Ascites SNOMED Code(s): 202461560 ICD Code: R18.8 - OTHER ASCITES Status: Acute Current Visit: No Qualifiers: Ascites type: other type Qualified Code(s): R18.8 - Other ascites (2) Chronic liver disease and cirrhosis SNOMED Code(s): 307390420 ICD Code: K74.60 - UNSPECIFIED CIRRHOSIS OF LIVER; K76.9 - LIVER DISEASE, UNSPECIFIED Status: Acute Current Visit: No (3) Hepatic encephalopathy SNOMED Code(s): 80117541 ICD Code: K72.90 - HEPATIC FAILURE, UNSPECIFIED WITHOUT COMA Status: Acute Current Visit: No (4) Hyperammonemia SNOMED Code(s): 6835721 ICD Code: E72.20 - DISORDER OF UREA CYCLE METABOLISM, UNSPECIFIED Status: Acute Current Visit: No Problem List Initiated/Reviewed/Updated: Yes Orders Last 24hrs: Active Orders 24 hr Category Date Time Status Admission Diagnosis [ADT] Routine ADT 06/03/19 11:40 Ordered Patient Status [ADT] Routine ADT 06/03/19 13:08 Active Ambulate [RC] PER UNIT ROUTINE Care 06/03/19 13:09 Active Antiembolic Devices [RC] PER UNIT ROUTINE Care 06/03/19 13:10 Active Blood Glucose Check, Bedside [RC] ONETIME Care 06/03/19 10:15 Active Blood Glucose Check, Bedside [RC] QIDACANDBED Care 06/03/19 13:08 Active Oxygen Therapy [RC] PRN Care 06/03/19 13:08 Active Up With Assistance [RC] ASDIRECTED Care 06/03/19 13:08 Active VTE/DVT Education [RC] PER UNIT ROUTINE Care 06/03/19 13:08 Active Vital Signs [RC] Q4H Care 06/03/19 13:08 Active Consistent Carbohydrate Diet [DIET] Diet 06/03/19 Dinner Active CULTURE URINE [RM] Stat Lab 06/03/19 10:35 Received Aspirin [Halfprin] Med 06/04/19 08:00 Ordered 81 mg PO BRK Ferrous Sulfate Med 06/03/19 14:00 Ordered 325 mg PO TID Furosemide [Lasix] Med 06/03/19 13:15 Ordered 20 mg PO DAILY Lactulose [Chronulac] Med 06/03/19 13:30 Ordered DOSE gm PO QID Nadolol [Corgard] Med 06/04/19 09:00 Ordered 20 mg PO DAILY Ondansetron [Zofran ODT] Med 06/03/19 13:08 Ordered 4 mg PO Q4H PRN Ondansetron [Zofran] Med 06/03/19 13:08 Ordered 4 mg IVPUSH Q6H PRN Pantoprazole [ProTONIX] Med 06/03/19 21:00 Ordered 40 mg PO BID Potassium Chloride [Potassium Chloride] Med 06/04/19 09:00 Ordered 20 meq PO DAILY Rifaximin [Xifaxan] Med 06/03/19 13:15 Ordered 550 mg PO BID Sodium Chloride 0.9% [Saline Flush] Med 06/03/19 13:08 Ordered 10 ml FLUSH ASDIRECTED PRN Spironolactone [Aldactone] Med 06/03/19 21:00 Ordered 50 mg PO BID Zolpidem [Ambien] Med 06/03/19 13:08 Ordered 5 mg PO BEDTIME PRN Antiembolic Hose [OM.PC] Per Unit Routine Oth 06/03/19 13:09 Ordered Saline Lock Insert [OM.PC] Routine Oth 06/03/19 13:08 Ordered Resuscitation Status Routine Resus Stat 06/03/19 13:08 Ordered Medication Orders Aspirin (Halfprin) 81 mg PO BRK KEITH Ferrous Sulfate (Ferrous Sulfate) 325 mg PO TID KEITH Furosemide (Lasix) 20 mg PO DAILY KEITH Lactulose (Chronulac) gm PO QID KEITH Non-Formulary Medication (Nadolol [Corgard]) 20 mg PO DAILY KEITH Non-Formulary Medication (Potassium Chloride [Potassium Chloride]) 20 meq PO DAILY KEITH Ondansetron HCl (Zofran Odt) 4 mg PO Q4H PRN PRN Reason: nausea, able to take PO Ondansetron HCl (Zofran) 4 mg IVPUSH Q6H PRN PRN Reason: Nausea/Vomiting Pantoprazole Sodium (Protonix) 40 mg PO BID KEITH Rifaximin (Xifaxan) 550 mg PO BID KEITH Sodium Chloride (Saline Flush) 10 ml FLUSH ASDIRECTED PRN PRN Reason: Keep Vein Open Spironolactone (Aldactone) 50 mg PO BID KEITH Zolpidem Tartrate (Ambien) 5 mg PO BEDTIME PRN PRN Reason: Sleep Assessment/Plan Comment:: 64-year-old lady presented with confusion. Acute encephalopathy Most likely secondary to metabolic encephalopathy due to liver cirrhosis, acute hepatitic encephalopathy The patient has a history of similar presentations. We will start the patient on rifaximine Start the patient on lactulose Liver cirrhosis with recurrent ascites The patient Lasix Continue spironolactone Follow electrolytes Diabetes Follow blood sugars and use supplemental insulin and hypoglycemia protocol as needed We'll check for urine culture for potential infection DVT prophylaxis with subcutaneous heparin
[2019-06-03] MEDS: Ferrous Sulfate 325 MG Tab PO SCH ×2 (15:02→20:28)
[2019-06-03] MEDS: Rifaximin 550 MG Tab PO SCH ×2 (15:02→20:28)
[2019-06-03] MEDS: Furosemide 20 MG Tab PO SCH (15:02)
[2019-06-03] MEDS: Lactulose Soln 10 GM/15 ML 30 ML UD Cup PO SCH ×3 (15:03→20:29)
[2019-06-03] MEDS: Insulin Lispro 100 Units/ML 3 ML Vial SUBCUT SCH ×2 (16:52→21:52)
[2019-06-03] MEDS: Pantoprazole 40 MG Tab.CR PO SCH (17:04)
--- NOTE | 2019-06-03 19:37 | PCM.SN ---
- Free Text/Narrative Note: During the admission process 5 reviewing the patient's chart, presentation, laboratory findings, physical examination it was determined that the patient status should be changed from inpatient observation as patient will be likely discharged within 48 hours. The patient does not meet criteria for inpatient status. I reviewed the case with our returned case inspector Linsey Kyle RN,. The case was also reviewed by our utilization review committee physician Dr. Mata. We are all in agreement with changing the admission status observation as that appear to better describe the patient's clinical situation. Patient has been notified of admission status change from inpatient to observation status.
[2019-06-03] MEDS: Spironolactone 25 MG Tab PO SCH (20:28)
[2019-06-04] MEDS: Pantoprazole 40 MG Tab.CR PO SCH ×2 (05:28→16:44)
[2019-06-04 06:48] LABS: ANION GAP 12.5; CHLORIDE,CL 103 mmol/L (101-111); SODIUM,NA 138 mmol/L (135-145)
[2019-06-04] MEDS: Insulin Lispro 100 Units/ML 3 ML Vial SUBCUT SCH ×4 (08:26→22:01)
[2019-06-04] MEDS: Aspirin 81 MG Tab.EC PO SCH (08:28)
[2019-06-04] MEDS: Rifaximin 550 MG Tab PO SCH ×2 (08:29→21:52)
[2019-06-04] MEDS: Ferrous Sulfate 325 MG Tab PO SCH ×3 (08:30→21:51)
[2019-06-04] MEDS: Furosemide 20 MG Tab PO SCH (08:30)
[2019-06-04] MEDS: Spironolactone 25 MG Tab PO SCH ×2 (08:31→21:52)
[2019-06-04] MEDS: Potassium Chloride 10 MEQ Tab.ER PO SCH (08:32)
[2019-06-04] MEDS: Lactulose Soln 10 GM/15 ML 30 ML UD Cup PO SCH ×4 (08:34→21:52)
[2019-06-04] MEDS ORDERED: Non-Formulary Medication 1 Each (Nadolol [Corgard] 20 MG) PO SCH (09:00)
--- NOTE | 2019-06-04 10:35 | PCM.PN ---
- General Info Date of Service: 06/04/19 Admission Dx/Problem (Free Text): Admission Diagnosis/Problem Admission Diagnosis/Problem Hepatic encephalopathy Subjective Update: Overnight was confused. Much more clear this morning. He is interacting well, son is visiting. According to the son she is back to baseline. Reports no abdominal pain. She feels that although there is some distention this is not as bad compared to the times when she needs paracentesis. No chest pain, no shortness of breath, no fever. Functional Status: Reports: Pain Controlled, Tolerating Diet - Review of Systems General: Reports: Weakness. Denies: Fever Pulmonary: Denies: Shortness of Breath Cardiovascular: Denies: Chest Pain Gastrointestinal: Denies: Abdominal Pain Genitourinary: Denies: Dysuria - Patient Data Vitals - Most Recent: Last Vital Signs Temp 37.0 C 06/04/19 07:00 Pulse 97 06/04/19 07:00 Resp 16 06/04/19 07:00 BP 146/77 H 06/04/19 07:00 Pulse Ox 99 06/04/19 07:00 Weight - Most Recent: 86.183 kg I&O - Last 24 Hours: Intake & Output 06/03/19 06/04/19 06/04/19 22:59 06:59 14:59 Intake Total 120 200 Output Total 200 200 Balance -80 0 Lab Results Last 24 Hours: Laboratory Results - last 24 hr 06/03/19 06/03/19 06/03/19 Range/Units 10:23 10:23 10:23 WBC 4.0 L (5.0-10.0) 10^3/uL RBC 3.18 L (4.2-5.4) 10^6/uL Hgb 10.1 L (12.0-16.0) g/dL Hct 30.3 L (37.0-47.0) % MCV 95.3 (80-100) fL MCH 31.8 (27.0-34.0) pg MCHC 33.3 (33.0-35.0) g/dL Plt Count 73 L (150-450) 10^3/uL Neut % (Auto) 67.3 (42.2-75.2) % Lymph % (Auto) 19.5 L (20.5-50.1) % Henry % (Auto) 12.7 H (2-8) % Eos % (Auto) 0.0 L (1.0-3.0) % Baso % (Auto) 0.5 (0.0-1.0) % PT 11.1 (9.0-12.0) SEC INR 1.1 (0.9-1.2) APTT 24.8 (22.0-34.0) SEC Sodium 136 (135-145) mmol/L Potassium 3.8 (3.6-5.0) mmol/L Chloride 101 (101-111) mmol/L Carbon Dioxide 25.0 (21.0-31.0) mmol/L Anion Gap 13.8 BUN 15 (7-18) mg/dL Creatinine 0.8 (0.6-1.3) mg/dL Est Cr Clr Drug Dosing TNP Estimated GFR (MDRD) > 60 BUN/Creatinine Ratio 18.75 Glucose 126 H (74-105) mg/dL POC Glucose (70-105) mg/dl Lactic Acid (0.5-2.2) mmol/L Calcium 8.7 (8.4-10.2) mg/dl Total Bilirubin 1.6 H (0.2-1.0) mg/dL AST 42 (10-42) IU/L ALT 25 (10-60) IU/L Alkaline Phosphatase 147 H (42-121) IU/L Ammonia (11-35) umol/L B-Natriuretic Peptide 88 (0-100) pg/ml Total Protein 7.8 (6.7-8.2) g/dl Albumin 2.9 L (3.2-5.5) g/dl Globulin 4.9 Albumin/Globulin Ratio 0.59 Amylase 61 (28-100) U/L Lipase 36 (22-51) U/L Urine Color (YELLOW) Urine Appearance (CLEAR) Urine pH (5.0-9.0) Ur Specific [place] (1.005-1.030) Urine Protein (NEGATIVE) Urine Glucose (UA) (NEGATIVE) Urine Ketones (NEGATIVE) Urine Occult Blood (NEGATIVE) Urine Nitrite (NEGATIVE) Urine Bilirubin (NEGATIVE) Urine Urobilinogen (0.2-1.0) mg/dL Ur Leukocyte Esterase (NEGATIVE) Urine RBC /HPF Urine WBC (0-5/HPF) /HPF Ur Epithelial Cells (NOT SEEN) /HPF Urine Bacteria (0-FEW/HPF) /HPF Hyaline Casts (NOT SEEN) /LPF Urine Mucus (NOT SEEN) /LPF Urine Opiates Screen (NEGATIVE) Ur Oxycodone Screen (NEGATIVE) Urine Methadone Screen (NEGATIVE) Ur Barbiturates Screen (NEGATIVE) U Tricyclic Antidepress (NEGATIVE) Ur Phencyclidine Scrn (NEGATIVE) Ur Amphetamine Screen (NEGATIVE) U Methamphetamines Scrn (NEGATIVE) Urine MDMA Screen (NEGATIVE) U Benzodiazepines Scrn (NEGATIVE) Urine Cocaine Screen (NEGATIVE) U Marijuana (THC) Screen (NEGATIVE) Ethyl Alcohol < 5 mg/dL 06/03/19 06/03/19 06/03/19 Range/Units 10:23 10:23 10:35 WBC (5.0-10.0) 10^3/uL RBC (4.2-5.4) 10^6/uL Hgb (12.0-16.0) g/dL Hct (37.0-47.0) % MCV (80-100) fL MCH (27.0-34.0) pg MCHC (33.0-35.0) g/dL Plt Count (150-450) 10^3/uL Neut % (Auto) (42.2-75.2) % Lymph % (Auto) (20.5-50.1) % Henry % (Auto) (2-8) % Eos % (Auto) (1.0-3.0) % Baso % (Auto) (0.0-1.0) % PT (9.0-12.0) SEC INR (0.9-1.2) APTT (22.0-34.0) SEC Sodium (135-145) mmol/L Potassium (3.6-5.0) mmol/L Chloride (101-111) mmol/L Carbon Dioxide (21.0-31.0) mmol/L Anion Gap BUN (7-18) mg/dL Creatinine (0.6-1.3) mg/dL Est Cr Clr Drug Dosing Estimated GFR (MDRD) BUN/Creatinine Ratio Glucose (74-105) mg/dL POC Glucose (70-105) mg/dl Lactic Acid 1.8 (0.5-2.2) mmol/L Calcium (8.4-10.2) mg/dl Total Bilirubin (0.2-1.0) mg/dL AST (10-42) IU/L ALT (10-60) IU/L Alkaline Phosphatase (42-121) IU/L Ammonia 98 H (11-35) umol/L B-Natriuretic Peptide (0-100) pg/ml Total Protein (6.7-8.2) g/dl Albumin (3.2-5.5) g/dl Globulin Albumin/Globulin Ratio Amylase (28-100) U/L Lipase (22-51) U/L Urine Color Yellow (YELLOW) Urine Appearance Clear (CLEAR) Urine pH 6.0 (5.0-9.0) Ur Specific [place] 1.025 (1.005-1.030) Urine Protein Negative (NEGATIVE) Urine Glucose (UA) Negative (NEGATIVE) Urine Ketones Negative (NEGATIVE) Urine Occult Blood Trace-intact H (NEGATIVE) Urine Nitrite Negative (NEGATIVE) Urine Bilirubin Negative (NEGATIVE) Urine Urobilinogen 2.0 H (0.2-1.0) mg/dL Ur Leukocyte Esterase Trace H (NEGATIVE) Urine RBC 5-10 H /HPF Urine WBC 5-10 H (0-5/HPF) /HPF Ur Epithelial Cells Moderate H (NOT SEEN) /HPF Urine Bacteria Few (0-FEW/HPF) /HPF Hyaline Casts Rare H (NOT SEEN) /LPF Urine Mucus Rare (NOT SEEN) /LPF Urine Opiates Screen (NEGATIVE) Ur Oxycodone Screen (NEGATIVE) Urine Methadone Screen (NEGATIVE) Ur Barbiturates Screen (NEGATIVE) U Tricyclic Antidepress (NEGATIVE) Ur Phencyclidine Scrn (NEGATIVE) Ur Amphetamine Screen (NEGATIVE) U Methamphetamines Scrn (NEGATIVE) Urine MDMA Screen (NEGATIVE) U Benzodiazepines Scrn (NEGATIVE) Urine Cocaine Screen (NEGATIVE) U Marijuana (THC) Screen (NEGATIVE) Ethyl Alcohol mg/dL 06/03/19 06/03/19 06/03/19 Range/Units 10:35 10:38 16:31 WBC (5.0-10.0) 10^3/uL RBC (4.2-5.4) 10^6/uL Hgb (12.0-16.0) g/dL Hct (37.0-47.0) % MCV (80-100) fL MCH (27.0-34.0) pg MCHC (33.0-35.0) g/dL Plt Count (150-450) 10^3/uL Neut % (Auto) (42.2-75.2) % Lymph % (Auto) (20.5-50.1) % Henry % (Auto) (2-8) % Eos % (Auto) (1.0-3.0) % Baso % (Auto) (0.0-1.0) % PT (9.0-12.0) SEC INR (0.9-1.2) APTT (22.0-34.0) SEC Sodium (135-145) mmol/L Potassium (3.6-5.0) mmol/L Chloride (101-111) mmol/L Carbon Dioxide (21.0-31.0) mmol/L Anion Gap BUN (7-18) mg/dL Creatinine (0.6-1.3) mg/dL Est Cr Clr Drug Dosing Estimated GFR (MDRD) BUN/Creatinine Ratio Glucose (74-105) mg/dL POC Glucose 114 H 110 H (70-105) mg/dl Lactic Acid (0.5-2.2) mmol/L Calcium (8.4-10.2) mg/dl Total Bilirubin (0.2-1.0) mg/dL AST (10-42) IU/L ALT (10-60) IU/L Alkaline Phosphatase (42-121) IU/L Ammonia (11-35) umol/L B-Natriuretic Peptide (0-100) pg/ml Total Protein (6.7-8.2) g/dl Albumin (3.2-5.5) g/dl Globulin Albumin/Globulin Ratio Amylase (28-100) U/L Lipase (22-51) U/L Urine Color (YELLOW) Urine Appearance (CLEAR) Urine pH (5.0-9.0) Ur Specific [place] (1.005-1.030) Urine Protein (NEGATIVE) Urine Glucose (UA) (NEGATIVE) Urine Ketones (NEGATIVE) Urine Occult Blood (NEGATIVE) Urine Nitrite (NEGATIVE) Urine Bilirubin (NEGATIVE) Urine Urobilinogen (0.2-1.0) mg/dL Ur Leukocyte Esterase (NEGATIVE) Urine RBC /HPF Urine WBC (0-5/HPF) /HPF Ur Epithelial Cells (NOT SEEN) /HPF Urine Bacteria (0-FEW/HPF) /HPF Hyaline Casts (NOT SEEN) /LPF Urine Mucus (NOT SEEN) /LPF Urine Opiates Screen Negative (NEGATIVE) Ur Oxycodone Screen Negative (NEGATIVE) Urine Methadone Screen Negative (NEGATIVE) Ur Barbiturates Screen Negative (NEGATIVE) U Tricyclic Antidepress Negative (NEGATIVE) Ur Phencyclidine Scrn Negative (NEGATIVE) Ur Amphetamine Screen Negative (NEGATIVE) U Methamphetamines Scrn Negative (NEGATIVE) Urine MDMA Screen Negative (NEGATIVE) U Benzodiazepines Scrn Negative (NEGATIVE) Urine Cocaine Screen Negative (NEGATIVE) U Marijuana (THC) Screen Negative (NEGATIVE) Ethyl Alcohol mg/dL 06/03/19 06/04/19 06/04/19 Range/Units 20:49 06:02 06:02 WBC 3.8 L (5.0-10.0) 10^3/uL RBC 3.18 L (4.2-5.4) 10^6/uL Hgb 9.9 L (12.0-16.0) g/dL Hct 30.7 L (37.0-47.0) % MCV 96.5 (80-100) fL MCH 31.1 (27.0-34.0) pg MCHC 32.2 L (33.0-35.0) g/dL Plt Count 99 L (150-450) 10^3/uL Neut % (Auto) 66.7 (42.2-75.2) % Lymph % (Auto) 18.0 L (20.5-50.1) % Henry % (Auto) 14.8 H (2-8) % Eos % (Auto) 0.0 L (1.0-3.0) % Baso % (Auto) 0.5 (0.0-1.0) % PT (9.0-12.0) SEC INR (0.9-1.2) APTT (22.0-34.0) SEC Sodium 138 (135-145) mmol/L Potassium 3.5 L (3.6-5.0) mmol/L Chloride 103 (101-111) mmol/L Carbon Dioxide 26.0 (21.0-31.0) mmol/L Anion Gap 12.5 BUN 14 (7-18) mg/dL Creatinine 0.7 (0.6-1.3) mg/dL Est Cr Clr Drug Dosing 78.95 Estimated GFR (MDRD) > 60 BUN/Creatinine Ratio Glucose 121 H (74-105) mg/dL POC Glucose 124 H (70-105) mg/dl Lactic Acid (0.5-2.2) mmol/L Calcium 8.7 (8.4-10.2) mg/dl Total Bilirubin (0.2-1.0) mg/dL AST (10-42) IU/L ALT (10-60) IU/L Alkaline Phosphatase (42-121) IU/L Ammonia (11-35) umol/L B-Natriuretic Peptide (0-100) pg/ml Total Protein (6.7-8.2) g/dl Albumin (3.2-5.5) g/dl Globulin Albumin/Globulin Ratio Amylase (28-100) U/L Lipase (22-51) U/L Urine Color (YELLOW) Urine Appearance (CLEAR) Urine pH (5.0-9.0) Ur Specific [place] (1.005-1.030) Urine Protein (NEGATIVE) Urine Glucose (UA) (NEGATIVE) Urine Ketones (NEGATIVE) Urine Occult Blood (NEGATIVE) Urine Nitrite (NEGATIVE) Urine Bilirubin (NEGATIVE) Urine Urobilinogen (0.2-1.0) mg/dL Ur Leukocyte Esterase (NEGATIVE) Urine RBC /HPF Urine WBC (0-5/HPF) /HPF Ur Epithelial Cells (NOT SEEN) /HPF Urine Bacteria (0-FEW/HPF) /HPF Hyaline Casts (NOT SEEN) /LPF Urine Mucus (NOT SEEN) /LPF Urine Opiates Screen (NEGATIVE) Ur Oxycodone Screen (NEGATIVE) Urine Methadone Screen (NEGATIVE) Ur Barbiturates Screen (NEGATIVE) U Tricyclic Antidepress (NEGATIVE) Ur Phencyclidine Scrn (NEGATIVE) Ur Amphetamine Screen (NEGATIVE) U Methamphetamines Scrn (NEGATIVE) Urine MDMA Screen (NEGATIVE) U Benzodiazepines Scrn (NEGATIVE) Urine Cocaine Screen (NEGATIVE) U Marijuana (THC) Screen (NEGATIVE) Ethyl Alcohol mg/dL 06/04/19 Range/Units 07:56 WBC (5.0-10.0) 10^3/uL RBC (4.2-5.4) 10^6/uL Hgb (12.0-16.0) g/dL Hct (37.0-47.0) % MCV (80-100) fL MCH (27.0-34.0) pg MCHC (33.0-35.0) g/dL Plt Count (150-450) 10^3/uL Neut % (Auto) (42.2-75.2) % Lymph % (Auto) (20.5-50.1) % Henry % (Auto) (2-8) % Eos % (Auto) (1.0-3.0) % Baso % (Auto) (0.0-1.0) % PT (9.0-12.0) SEC INR (0.9-1.2) APTT (22.0-34.0) SEC Sodium (135-145) mmol/L Potassium (3.6-5.0) mmol/L Chloride (101-111) mmol/L Carbon Dioxide (21.0-31.0) mmol/L Anion Gap BUN (7-18) mg/dL Creatinine (0.6-1.3) mg/dL Est Cr Clr Drug Dosing Estimated GFR (MDRD) BUN/Creatinine Ratio Glucose (74-105) mg/dL POC Glucose 116 H (70-105) mg/dl Lactic Acid (0.5-2.2) mmol/L Calcium (8.4-10.2) mg/dl Total Bilirubin (0.2-1.0) mg/dL AST (10-42) IU/L ALT (10-60) IU/L Alkaline Phosphatase (42-121) IU/L Ammonia (11-35) umol/L B-Natriuretic Peptide (0-100) pg/ml Total Protein (6.7-8.2) g/dl Albumin (3.2-5.5) g/dl Globulin Albumin/Globulin Ratio Amylase (28-100) U/L Lipase (22-51) U/L Urine Color (YELLOW) Urine Appearance (CLEAR) Urine pH (5.0-9.0) Ur Specific [place] (1.005-1.030) Urine Protein (NEGATIVE) Urine Glucose (UA) (NEGATIVE) Urine Ketones (NEGATIVE) Urine Occult Blood (NEGATIVE) Urine Nitrite (NEGATIVE) Urine Bilirubin (NEGATIVE) Urine Urobilinogen (0.2-1.0) mg/dL Ur Leukocyte Esterase (NEGATIVE) Urine RBC /HPF Urine WBC (0-5/HPF) /HPF Ur Epithelial Cells (NOT SEEN) /HPF Urine Bacteria (0-FEW/HPF) /HPF Hyaline Casts (NOT SEEN) /LPF Urine Mucus (NOT SEEN) /LPF Urine Opiates Screen (NEGATIVE) Ur Oxycodone Screen (NEGATIVE) Urine Methadone Screen (NEGATIVE) Ur Barbiturates Screen (NEGATIVE) U Tricyclic Antidepress (NEGATIVE) Ur Phencyclidine Scrn (NEGATIVE) Ur Amphetamine Screen (NEGATIVE) U Methamphetamines Scrn (NEGATIVE) Urine MDMA Screen (NEGATIVE) U Benzodiazepines Scrn (NEGATIVE) Urine Cocaine Screen (NEGATIVE) U Marijuana (THC) Screen (NEGATIVE) Ethyl Alcohol mg/dL Devendra Results Last 24 Hours: Microbiology 06/03/19 10:35 Urine Culture - Preliminary Urine, Catheterized NO GROWTH AFTER 1 DAY Med Orders - Current: Current Medications Aspirin (Halfprin) 81 mg PO BRK [facility] Last Admin: 06/04/19 08:28 Dose: 81 mg Ferrous Sulfate (Ferrous Sulfate) 325 mg PO TID [facility] Last Admin: 06/04/19 08:30 Dose: 325 mg Furosemide (Lasix) 20 mg PO DAILY [facility] Last Admin: 06/04/19 08:30 Dose: 20 mg Insulin Human Lispro (Humalog) 0 unit SUBCUT ACBED [facility]; Protocol Last Admin: 06/04/19 08:26 Dose: Not Given Lactulose (Cephulac) 10 gm PO QID [facility] Last Admin: 06/04/19 08:34 Dose: 10 gm Non-Formulary Medication (Nadolol [Corgard]) 20 mg PO DAILY [facility] Ondansetron HCl (Zofran Odt) 4 mg PO Q4H PRN PRN Reason: nausea, able to take PO Ondansetron HCl (Zofran) 4 mg IVPUSH Q6H PRN PRN Reason: Nausea/Vomiting Pantoprazole Sodium (Protonix) 40 mg PO BIDAC [facility] Last Admin: 06/04/19 05:28 Dose: 40 mg Potassium Chloride (Klor-Con 10) 20 meq PO DAILY@0800 [facility] Last Admin: 06/04/19 08:32 Dose: 20 meq Rifaximin (Xifaxan) 550 mg PO BID [facility] Last Admin: 06/04/19 08:29 Dose: 550 mg Sodium Chloride (Saline Flush) 10 ml FLUSH ASDIRECTED PRN PRN Reason: Keep Vein Open Last Admin: 06/03/19 20:42 Dose: 10 ml Spironolactone (Aldactone) 50 mg PO BID [facility] Last Admin: 06/04/19 08:31 Dose: 50 mg Zolpidem Tartrate (Ambien) 5 mg PO BEDTIME PRN PRN Reason: Sleep Discontinued Medications Lactulose (Cephulac) 20 gm PO ONETIME ONE Stop: 06/03/19 10:57 Last Admin: 06/03/19 11:05 Dose: 20 gm - Exam General: Alert, Oriented Neck: Supple Lungs: Clear to Auscultation, Normal Respiratory Effort Cardiovascular: Regular Rate, Regular Rhythm GI/Abdominal Exam: Normal Bowel Sounds, Soft, Non-Tender, Other (Ascites but not tense) Extremities: No Pedal Edema Neurological: No New Focal Deficit Psy/Mental Status: Alert, Normal Affect, Normal Mood - Problem List & Annotations (1) Ascites SNOMED Code(s): 529258556 Code(s): R18.8 - OTHER ASCITES Status: Acute Current Visit: No Qualifiers: Ascites type: other type Qualified Code(s): R18.8 - Other ascites (2) Chronic liver disease and cirrhosis SNOMED Code(s): 368183210 Code(s): K74.60 - UNSPECIFIED CIRRHOSIS OF LIVER; K76.9 - LIVER DISEASE, UNSPECIFIED Status: Acute Current Visit: No (3) Hepatic encephalopathy SNOMED Code(s): 28848326 Code(s): K72.90 - HEPATIC FAILURE, UNSPECIFIED WITHOUT COMA Status: Acute Current Visit: No (4) Hyperammonemia SNOMED Code(s): 8866001 Code(s): E72.20 - DISORDER OF UREA CYCLE METABOLISM, UNSPECIFIED Status: Acute Current Visit: No - Problem List Review Problem List Initiated/Reviewed/Updated: Yes - My Orders Last 24 Hours: My Active Orders 06/03/19 13:08 Patient Status [ADT] Routine Blood Glucose Check, Bedside [RC] QIDACANDBED Oxygen Therapy [RC] PRN Up With Assistance [RC] ASDIRECTED VTE/DVT Education [RC] PER UNIT ROUTINE Vital Signs [RC] Q4H Ondansetron [Zofran ODT] 4 mg PO Q4H PRN Ondansetron [Zofran] 4 mg IVPUSH Q6H PRN Sodium Chloride 0.9% [Saline Flush] 10 ml FLUSH ASDIRECTED PRN Zolpidem [Ambien] 5 mg PO BEDTIME PRN Saline Lock Insert [OM.PC] Routine Resuscitation Status Routine 06/03/19 13:09 Ambulate [RC] PER UNIT ROUTINE Antiembolic Hose [OM.PC] Per Unit Routine 06/03/19 13:10 Antiembolic Devices [RC] 06/03/19 13:15 Furosemide [Lasix] 20 mg PO DAILY Rifaximin [Xifaxan] 550 mg PO BID 06/03/19 13:30 Lactulose [Cephulac] 10 gm PO QID 06/03/19 14:00 Ferrous Sulfate 325 mg PO TID 06/03/19 16:00 Insulin Lispro [HumaLOG] See Protocol SUBCUT ACBED Pantoprazole [ProTONIX] 40 mg PO BIDAC 06/03/19 21:00 Spironolactone [Aldactone] 50 mg PO BID 06/03/19 Dinner Consistent Carbohydrate Diet [DIET] 06/04/19 08:00 Aspirin [Halfprin] 81 mg PO BRK Potassium Chloride [Klor-Con 10] 20 meq PO DAILY@0800 06/04/19 09:00 Nadolol [Corgard] 20 mg PO DAILY 06/04/19 10:31 Potassium Chloride [Klor-Con 10] 40 meq PO ONETIME ONE 06/05/19 05:15 BASIC METABOLIC PANEL,BMP [CHEM] AM CBC WITH AUTO DIFF [HEME] AM - Plan Plan:: 64-year-old lady presented with confusion. Acute encephalopathy Most likely secondary to metabolic encephalopathy due to liver cirrhosis, acute hepatitic encephalopathy The patient has a history of similar presentations. Started the patient on rifaximine continue the patient on lactulose discussed importance of compliance Liver cirrhosis with recurrent ascites The patient Lasix Continue spironolactone replace mild hypokalemia Follow electrolytes Diabetes Follow blood sugars and use supplemental insulin and hypoglycemia protocol as needed urine culture: negative DVT prophylaxis with subcutaneous heparin
[2019-06-04] MEDS ORDERED: Potassium Chloride 10 MEQ Tab.ER PO ONE (10:45)
[2019-06-05] MEDS: Pantoprazole 40 MG Tab.CR PO SCH (05:15)
[2019-06-05 07:30] LABS: ANION GAP 13.7; CHLORIDE,CL 104 mmol/L (101-111); SODIUM,NA 136 mmol/L (135-145)
[2019-06-05 08:05] VITALS: BP 148/81
[2019-06-05] MEDS: Insulin Lispro 100 Units/ML 3 ML Vial SUBCUT SCH (08:14)
[2019-06-05] MEDS: Spironolactone 25 MG Tab PO SCH (09:02)
[2019-06-05] MEDS: Aspirin 81 MG Tab.EC PO SCH (09:02)
[2019-06-05] MEDS: Rifaximin 550 MG Tab PO SCH (09:02)
[2019-06-05] MEDS: Ferrous Sulfate 325 MG Tab PO SCH (09:03)
[2019-06-05] MEDS: Potassium Chloride 10 MEQ Tab.ER PO SCH (09:03)
[2019-06-05] MEDS: Furosemide 20 MG Tab PO SCH (09:03)
[2019-06-05] MEDS: Lactulose Soln 10 GM/15 ML 30 ML UD Cup PO SCH (09:05)
--- NOTE | 2019-06-05 10:24 | PCM.DCSUM1 ---
Discharge Summary - Hospital Course Free Text/Narrative:: 64-year-old lady presented with confusion. Acute encephalopathy secondary to metabolic encephalopathy due to liver cirrhosis, acute hepatitic encephalopathy The patient has a history of similar presentations. Started the patient on rifaximine continued the patient on lactulose discussed importance of compliance improved h/o DM had hypoglycemic episodes recently stopped lantus cont metformin Liver cirrhosis with recurrent ascites The patient Lasix Continue spironolactone Diagnosis: Stroke: No - Discharge Data Discharge Date: 06/05/19 Discharge Disposition: Home, Self-Care 01 Condition: Stable - Discharge Diagnosis/Problem(s) (1) Ascites SNOMED Code(s): 428034313 ICD Code: R18.8 - OTHER ASCITES Status: Acute Current Visit: No Qualifiers: Ascites type: other type Qualified Code(s): R18.8 - Other ascites (2) Chronic liver disease and cirrhosis SNOMED Code(s): 769375830 ICD Code: K74.60 - UNSPECIFIED CIRRHOSIS OF LIVER; K76.9 - LIVER DISEASE, UNSPECIFIED Status: Acute Current Visit: No (3) Hepatic encephalopathy SNOMED Code(s): 43197356 ICD Code: K72.90 - HEPATIC FAILURE, UNSPECIFIED WITHOUT COMA Status: Acute Current Visit: No (4) Hyperammonemia SNOMED Code(s): 0623571 ICD Code: E72.20 - DISORDER OF UREA CYCLE METABOLISM, UNSPECIFIED Status: Acute Current Visit: No - Patient Instructions Diet: Heart Healthy Diet Activity: As Tolerated - Discharge Plan *PRESCRIPTION DRUG MONITORING PROGRAM REVIEWED*: Not Applicable *COPY OF PRESCRIPTION DRUG MONITORING REPORT IN PATIENT HELEN: Not Applicable Prescriptions/Med Rec: Rifaximin [Xifaxan] 550 mg PO BID #60 tablet Home Medications: Home Meds Aspirin [Halfprin] 81 mg PO BRK 03/02/15 [History] Ferrous Sulfate 325 mg PO TID 06/03/19 [History] Nadolol [Corgard] 20 mg PO DAILY 06/03/19 [History] Pantoprazole [ProTONIX] 40 mg PO BID 06/03/19 [History] Potassium Chloride 20 meq PO DAILY 06/03/19 [History] Spironolactone [Aldactone] 50 mg PO BID 06/03/19 [History] metFORMIN HCl [Metformin HCl] 1,500 mg PO DAILY 06/03/19 [History] Lactulose [Cephulac] 10 gm PO QID cup 06/05/19 [Rx] Rifaximin [Xifaxan] 550 mg PO BID #60 tablet 06/05/19 [Rx] Oxygen Therapy Mode: Room Air Patient Handouts: Rifaximin tablets Referrals: Carmen Mallory MD [Ordering Only Provider] - - Discharge Summary/Plan Comment DC Time >30 min.: No - General Info Date of Service: 06/05/19 - Review of Systems General: Denies: Fever, Weakness Pulmonary: Denies: Shortness of Breath Cardiovascular: Denies: Chest Pain Gastrointestinal: Denies: Abdominal Pain Psychiatric: Denies: Confusion - Patient Data Vitals - Most Recent: Last Vital Signs Temp 36.6 C 06/05/19 07:00 Pulse 112 H 06/05/19 07:00 Resp 20 06/05/19 07:00 BP 148/81 H 06/05/19 07:00 Pulse Ox 100 06/05/19 07:00 Weight - Most Recent: 86.183 kg I&O - Last 24 hours: Intake & Output 06/04/19 06/05/19 06/05/19 22:59 06:59 14:59 Intake Total 740 Output Total 500 100 Balance 240 -100 Lab Results - Last 24 hrs: Laboratory Results - last 24 hr 06/04/19 06/04/19 06/04/19 Range/Units 11:42 16:54 20:57 WBC (5.0-10.0) 10^3/uL RBC (4.2-5.4) 10^6/uL Hgb (12.0-16.0) g/dL Hct (37.0-47.0) % MCV (80-100) fL MCH (27.0-34.0) pg MCHC (33.0-35.0) g/dL Plt Count (150-450) 10^3/uL Neut % (Auto) (42.2-75.2) % Lymph % (Auto) (20.5-50.1) % Davis % (Auto) (2-8) % Eos % (Auto) (1.0-3.0) % Baso % (Auto) (0.0-1.0) % Sodium (135-145) mmol/L Potassium (3.6-5.0) mmol/L Chloride (101-111) mmol/L Carbon Dioxide (21.0-31.0) mmol/L Anion Gap BUN (7-18) mg/dL Creatinine (0.6-1.3) mg/dL Est Cr Clr Drug Dosing mL/min Estimated GFR (MDRD) Glucose (74-105) mg/dL POC Glucose 138 H 119 H 127 H (70-105) mg/dl Calcium (8.4-10.2) mg/dl 06/05/19 06/05/19 06/05/19 Range/Units 05:50 05:50 07:43 WBC 4.1 L (5.0-10.0) 10^3/uL RBC 3.46 L (4.2-5.4) 10^6/uL Hgb 10.9 L (12.0-16.0) g/dL Hct 32.8 L (37.0-47.0) % MCV 94.8 (80-100) fL MCH 31.5 (27.0-34.0) pg MCHC 33.2 (33.0-35.0) g/dL Plt Count 84 L (150-450) 10^3/uL Neut % (Auto) 61.9 (42.2-75.2) % Lymph % (Auto) 22.0 (20.5-50.1) % Davis % (Auto) 15.6 H (2-8) % Eos % (Auto) 0.0 L (1.0-3.0) % Baso % (Auto) 0.5 (0.0-1.0) % Sodium 136 (135-145) mmol/L Potassium 3.7 (3.6-5.0) mmol/L Chloride 104 (101-111) mmol/L Carbon Dioxide 22.0 (21.0-31.0) mmol/L Anion Gap 13.7 BUN 13 (7-18) mg/dL Creatinine 0.7 (0.6-1.3) mg/dL Est Cr Clr Drug Dosing 78.95 mL/min Estimated GFR (MDRD) > 60 Glucose 125 H (74-105) mg/dL POC Glucose 145 H (70-105) mg/dl Calcium 9.0 (8.4-10.2) mg/dl VENUS Results - Last 24 hrs: Microbiology 06/03/19 10:35 Urine Culture - Final Urine, Catheterized Med Orders - Current: Current Medications Aspirin (Halfprin) 81 mg PO BRK [facility] Last Admin: 06/05/19 09:02 Dose: 81 mg Ferrous Sulfate (Ferrous Sulfate) 325 mg PO TID [facility] Last Admin: 06/05/19 09:03 Dose: 325 mg Furosemide (Lasix) 20 mg PO DAILY [facility] Last Admin: 06/05/19 09:03 Dose: 20 mg Insulin Human Lispro (Humalog) 0 unit SUBCUT ACBED [facility]; Protocol Last Admin: 06/05/19 08:14 Dose: Not Given Lactulose (Cephulac) 10 gm PO QID [facility] Last Admin: 06/05/19 09:05 Dose: 10 gm Ondansetron HCl (Zofran Odt) 4 mg PO Q4H PRN PRN Reason: nausea, able to take PO Ondansetron HCl (Zofran) 4 mg IVPUSH Q6H PRN PRN Reason: Nausea/Vomiting Pantoprazole Sodium (Protonix) 40 mg PO BIDAC [facility] Last Admin: 06/05/19 05:15 Dose: 40 mg Potassium Chloride (Klor-Con 10) 20 meq PO DAILY@0800 [facility] Last Admin: 06/05/19 09:03 Dose: 20 meq Rifaximin (Xifaxan) 550 mg PO BID [facility] Last Admin: 06/05/19 09:02 Dose: 550 mg Sodium Chloride (Saline Flush) 10 ml FLUSH ASDIRECTED PRN PRN Reason: Keep Vein Open Last Admin: 06/03/19 20:42 Dose: 10 ml Spironolactone (Aldactone) 50 mg PO BID [facility] Last Admin: 06/05/19 09:02 Dose: 50 mg Zolpidem Tartrate (Ambien) 5 mg PO BEDTIME PRN PRN Reason: Sleep Discontinued Medications Lactulose (Cephulac) 20 gm PO ONETIME ONE Stop: 06/03/19 10:57 Last Admin: 06/03/19 11:05 Dose: 20 gm Potassium Chloride (Klor-Con 10) 40 meq PO ONETIME ONE Stop: 06/04/19 10:46 Last Admin: 06/04/19 11:48 Dose: 40 meq - Exam General: Reports: Alert Neck: Reports: Supple Lungs: Reports: Clear to Auscultation, Normal Respiratory Effort Cardiovascular: Reports: Regular Rate, Regular Rhythm GI/Abdominal Exam: Normal Bowel Sounds, Soft, Non-Tender Skin: Reports: Warm Neurological: Reports: No New Focal Deficit Psy/Mental Status: Reports: Alert, Normal Affect, Normal Mood
== END 2019-06-05 11:00 | disposition home or self-care (01) ==
LOC: DL.ED 10:19 → DL.MS 11:42 → INTOOBSV 11:42
PROVIDERS: ADMIT Internal Medicine; ATTEND Internal Medicine
DX: G93.41 Metabolic encephalopathy (principal); K72.00 Acute and subacute hepatic failure without coma; K74.60 Unspecified cirrhosis of liver; R18.8 Other ascites; I10 Essential (primary) hypertension; E11.9 Type 2 diabetes mellitus without complications; E72.20 Disorder of urea cycle metabolism, unspecified; Z79.82 Long term (current) use of aspirin; Z79.899 Other long term (current) drug therapy; Z88.5 Allergy status to narcotic agent; Z79.4 Long term (current) use of insulin; Z87.891 Personal history of nicotine dependence
CPT/HCPCS: 36415; 80048; 80053; 80305; 81001; 82140; 82150; 82962; 83605; 83690; 83880; 85025; 85610; 85730; 87086; 99285; A9270; G0480; G0378

== ENCOUNTER 2019-10-20 17:31 | Emergency (ER) | payer MEDICARE, MEDICAID ==
[2019-10-20 17:41] VITALS: BP 121/57; PULSE 103
--- NOTE | 2019-10-20 18:04 | EDM.PDOC ---
ED HPI GENERAL MEDICAL PROBLEM - General Chief Complaint: General Stated Complaint: HIGH POTASSIUM Time Seen by Provider: 10/20/19 17:54 Source of Information: Reports: Patient History Limitations: Reports: No Limitations - History of Present Illness INITIAL COMMENTS - FREE TEXT/NARRATIVE: This 64 yo female patient was sent to the ED from the [facility] due to a potassium of 6.2. The patient was being seen in the clinic to have sutures removed. The patient reports she has been feeling normal today. The patient states she had the fluid removed from her belly 4 days ago. The patient reports she has had diarrhea when she takes her lactulose. The patient reports she does have an appointment with cardiology on November 08. The patient has a history of liver cirrhosis with recurrent ascites, diabetes, hypertension and hepatic encephalopathy. Onset: Unknown/Unsure Duration: Other Location: Reports: Other Quality: Reports: Other Severity: Moderate Improves with: Reports: None Worsens with: Reports: None Context: Reports: Other Associated Symptoms: Reports: No Other Symptoms Abdominal Pain Score (Numeric/FACES): 5 - Related Data Allergies Allergy/AdvReac Type Severity Reaction Status Date / Time codeine Allergy Fatigue Verified 10/20/19 17:38 famotidine [From Pepcid] Allergy Cannot Verified 10/20/19 17:38 Remember tramadol Allergy Nausea Verified 10/20/19 17:38 Home Meds: Home Meds Aspirin [Halfprin] 81 mg PO BRK 03/02/15 [History] Ferrous Sulfate 325 mg PO TID 06/03/19 [History] Nadolol [Corgard] 20 mg PO DAILY 06/03/19 [History] Pantoprazole [ProTONIX] 40 mg PO BID 06/03/19 [History] Potassium Chloride 20 meq PO DAILY 06/03/19 [History] Spironolactone [Aldactone] 100 mg PO BID 06/03/19 [History] metFORMIN HCl [Metformin HCl] 1,500 mg PO DAILY 06/03/19 [History] Lactulose [Cephulac] 10 gm PO QID cup 06/05/19 [Rx] Rifaximin [Xifaxan] 550 mg PO BID #60 tablet 06/05/19 [Rx] DULoxetine HCl [Cymbalta] 60 mg PO DAILY 10/20/19 [History] Furosemide 40 mg PO BID 10/20/19 [History] Gabapentin [Neurontin] 100 mg PO TID 10/20/19 [History] Gabapentin [Neurontin] 300 mg PO TID 10/20/19 [History] Past Medical History HEENT History: Reports: Hard of Hearing, Impaired Vision, Other (See Below) Other HEENT History: UPPER AND LOWER DENTURE PLATES Cardiovascular History: Reports: Hypertension, SOB on Exertion Respiratory History: Reports: COPD Gastrointestinal History: Reports: Chronic Constipation, Cirrhosis, GI Bleed, Other (See Below) Other Gastrointestinal History: "bands done" for bleeding Genitourinary History: Reports: None 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 Musculoskeletal History: peripheral neuropathy Neurological History: Reports: Other (See Below) Other Neuro History: HEPATIC ENCEPHALOPATHY Psychiatric History: Reports: Other (See Below) Other Psychiatric History: SHORT TERM MEMORY LOSS Endocrine/Metabolic History: Reports: Diabetes, Type II Hematologic History: Reports: Anemia, Blood Transfusion(s), Iron Deficiency Immunologic History: Reports: None Oncologic (Cancer) History: Reports: None Dermatologic History: Reports: Eczema - Infectious Disease History Infectious Disease History: Reports: Chicken Pox, Mumps - Past Surgical History Head Surgeries/Procedures: Reports: None HEENT Surgical History: Reports: None GI Surgical History: Reports: Colonoscopy, EGD, Other (See Below) Endocrine Surgical History: Reports: None Neurological Surgical History: Reports: None Musculoskeletal Surgical History: Reports: None Dermatological Surgical History: Reports: None Social & Family History - Family History Family Medical History: Unobtainable - Tobacco Use Smoking Status *Q: Never Smoker Second Hand Smoke Exposure: No - Caffeine Use Caffeine Use: Reports: Coffee Other Caffeine Use: COFFEE DAILY 1 CUP - Recreational Drug Use Recreational Drug Use: No - Living Situation & Occupation Living situation: Reports: , with Spouse Occupation: Disabled ED ROS GENERAL - Review of Systems Review Of Systems: Comprehensive ROS is negative, except as noted in HPI. ED EXAM, GENERAL - Physical Exam Exam: See Below Exam Limited By: No Limitations General Appearance: Alert, WD/WN, Mild Distress Eye Exam: Bilateral Eye: EOMI, Normal Inspection, PERRL Ears: Normal External Exam, Normal Canal, Hearing Grossly Normal, Normal TMs Nose: Normal Inspection, Normal Mucosa, No Blood Throat/Mouth: Normal Inspection, Normal Lips, Normal Teeth, Normal Gums, Normal Oropharynx, Normal Voice, No Airway Compromise Head: Atraumatic, Normocephalic Neck: Normal Inspection, Supple, Non-Tender, Full Range of Motion Respiratory/Chest: No Respiratory Distress, Lungs Clear, Normal Breath Sounds, No Accessory Muscle Use, Chest Non-Tender Cardiovascular: Normal Peripheral Pulses, Regular Rate, Rhythm, No Edema, No Gallop, No JVD, No Murmur, No Rub GI/Abdominal: Normal Bowel Sounds, Soft, Non-Tender, No Organomegaly, No Abnormal Bruit, No Mass, Pelvis Stable, Distended (Female) Exam: Deferred Rectal (Female) Exam: Deferred Back Exam: Normal Inspection, Full Range of Motion, NT Extremities: Normal Inspection, Normal Range of Motion, Non-Tender, Normal Capillary Refill, No Pedal Edema Neurological: Alert, Oriented, CN II-XII Intact, Normal Cognition, Normal Gait, Normal Reflexes, No Motor/Sensory Deficits Psychiatric: Normal Affect, Normal Mood Skin Exam: Warm, Dry, Intact, Normal Color, No Rash Lymphatic: No Adenopathy Course - Vital Signs Last Recorded V/S: Last Vital Signs Temp 37.4 C 10/20/19 17:38 Pulse 103 H 10/20/19 17:38 Resp 16 10/20/19 17:38 BP 121/57 L 10/20/19 17:38 Pulse Ox 96 10/20/19 17:38 - Orders/Labs/Meds Orders: Active Orders 24 hr Category Date Time Status EKG Documentation Completion [RC] URGENT Care 10/20/19 17:42 Active Labs: Laboratory Tests 10/20/19 10/20/19 10/20/19 Range/Units 17:48 17:48 17:48 WBC 6.2 (5.0-10.0) 10^3/uL RBC 2.63 L (4.2-5.4) 10^6/uL Hgb 8.9 L D (12.0-16.0) g/dL Hct 26.9 L (37.0-47.0) % MCV 102.3 H D (80-100) fL MCH 33.8 (27.0-34.0) pg MCHC 33.1 (33.0-35.0) g/dL Plt Count 130 L (150-450) 10^3/uL Neut % (Auto) 71.8 (42.2-75.2) % Lymph % (Auto) 16.9 L (20.5-50.1) % [place] % (Auto) 11.3 H (2-8) % Eos % (Auto) 0.0 L (1.0-3.0) % Baso % (Auto) 0.0 (0.0-1.0) % Sodium (135-145) mmol/L Potassium (3.6-5.0) mmol/L Chloride (101-111) mmol/L Carbon Dioxide (21.0-31.0) mmol/L Anion Gap BUN (7-18) mg/dL Creatinine (0.6-1.3) mg/dL Est Cr Clr Drug Dosing mL/min Estimated GFR (MDRD) BUN/Creatinine Ratio Glucose (74-105) mg/dL Calcium (8.4-10.2) mg/dl Magnesium 1.9 (1.8-2.5) mg/dL Total Bilirubin (0.2-1.0) mg/dL AST (10-42) IU/L ALT (10-60) IU/L Alkaline Phosphatase (42-121) IU/L Ammonia 48 H (11-35) umol/L Troponin I (0.00-0.02) ng/ml Total Protein (6.7-8.2) g/dl Albumin (3.2-5.5) g/dl Globulin Albumin/Globulin Ratio Acetaminophen < 10 ug/mL 10/20/19 Range/Units 17:48 WBC (5.0-10.0) 10^3/uL RBC (4.2-5.4) 10^6/uL Hgb (12.0-16.0) g/dL Hct (37.0-47.0) % MCV (80-100) fL MCH (27.0-34.0) pg MCHC (33.0-35.0) g/dL Plt Count (150-450) 10^3/uL Neut % (Auto) (42.2-75.2) % Lymph % (Auto) (20.5-50.1) % [place] % (Auto) (2-8) % Eos % (Auto) (1.0-3.0) % Baso % (Auto) (0.0-1.0) % Sodium 128 L (135-145) mmol/L Potassium 6.0 H D (3.6-5.0) mmol/L Chloride 99 L (101-111) mmol/L Carbon Dioxide 20.0 L (21.0-31.0) mmol/L Anion Gap 15.0 BUN 27 H (7-18) mg/dL Creatinine 1.2 (0.6-1.3) mg/dL Est Cr Clr Drug Dosing 40.90 mL/min Estimated GFR (MDRD) 45 BUN/Creatinine Ratio 22.50 Glucose 132 H (74-105) mg/dL Calcium 9.4 (8.4-10.2) mg/dl Magnesium (1.8-2.5) mg/dL Total Bilirubin 1.3 H (0.2-1.0) mg/dL AST 69 H (10-42) IU/L ALT 53 (10-60) IU/L Alkaline Phosphatase 254 H (42-121) IU/L Ammonia (11-35) umol/L Troponin I < 0.02 (0.00-0.02) ng/ml Total Protein 8.1 (6.7-8.2) g/dl Albumin 3.3 (3.2-5.5) g/dl Globulin 4.8 Albumin/Globulin Ratio 0.69 Acetaminophen ug/mL Meds: Medications Discontinued Medications Generic Name Dose Route Start Last Admin Trade Name Freq PRN Reason Stop Dose Admin Calcium Gluconate 1 gm 10/20/19 18:45 Calcium Gluconate IVPUSH 10/20/19 18:46 ONETIME ONE Dextrose/Water 50 ml 10/20/19 18:45 Dextrose 50% In Water IVPUSH 10/20/19 18:46 ONETIME ONE Insulin Human Regular 5 unit 10/20/19 18:45 Humulin R IV 10/20/19 18:46 ONETIME ONE Sodium Polystyrene Sulfonate 45 gm 10/20/19 18:45 Kayexalate PO 10/20/19 18:46 NOW ONE Departure - Departure Time of Disposition: 18:47 Disposition: DC/Tfer to [facility] 02 Condition: Fair Clinical Impression: Hyperkalemia - Discharge Information *PRESCRIPTION DRUG MONITORING PROGRAM REVIEWED*: Not Applicable *COPY OF PRESCRIPTION DRUG MONITORING REPORT IN PATIENT HELEN: Not Applicable Forms: Interfacility Transfer EMTALA Care Plan Goals: Discussed the patient's history, examination and lab results with Dr. Peng. Dr. Peng accepted the patient for continued evaluation and management. The patient was given insulin, dextrose, calcium gluconate and Kayexolate prior to transfer. The patient will be transported by [facility]. Sepsis Event Note - Evaluation Sepsis Screening Result: No Definite Risk - Focused Exam Vital Signs: Vital Signs Temp Pulse Resp BP Pulse Ox 10/20/19 17:38 37.4 C 103 H 16 121/57 L 96 Date Exam was Performed: 10/20/19 Time Exam was Performed: 18:46 - My Orders Last 24 Hours: My Active Orders 10/20/19 17:42 EKG Documentation Completion [RC] URGENT - Assessment/Plan Last 24 Hours: My Active Orders 10/20/19 17:42 EKG Documentation Completion [RC] URGENT
[2019-10-20 18:15] LABS: ACETAMINOPHEN < 10 ug/mL
[2019-10-20 18:18] LABS: CHLORIDE,CL 99 mmol/L (101-111); SODIUM,NA 128 mmol/L (135-145)
[2019-10-20] MEDS ORDERED: Insulin Regular, Human 100 Units/ML 3 ML Vial IV ONE (18:45)
[2019-10-20] MEDS ORDERED: Sodium Polystyrene Sulfonate 15 GM/60 ML Susp 60 ML Bot PO ONE (18:45)
[2019-10-20] MEDS ORDERED: 50% Dextrose in Water 50 ML Syringe IVPUSH ONE (18:45)
[2019-10-20] MEDS ORDERED: Calcium Gluconate 10% 1 GM/10 ML SDV IVPUSH ONE (18:45)
== END 2019-10-20 19:25 ==
LOC: DL.ED 17:31
DX: E87.5 Hyperkalemia (principal); I10 Essential (primary) hypertension; J44.9 Chronic obstructive pulmonary disease, unspecified; E11.42 Type 2 diabetes mellitus with diabetic polyneuropathy; Z88.5 Allergy status to narcotic agent; Z88.8 Allergy status to other drugs, medicaments and biological substances; Z79.84 Long term (current) use of oral hypoglycemic drugs; Z79.899 Other long term (current) drug therapy; Z79.82 Long term (current) use of aspirin
CPT/HCPCS: 36415; 80053; 82140; 83735; 84484; 85025; 93005; 96374; 96375; 99285; A9270; G0480; J0610; J1815

== ENCOUNTER 2019-11-13 13:48 | Emergency (ER) | payer MEDICARE, MEDICAID ==
[2019-11-13 15:09] VITALS: BP 124/58; PULSE 88
--- NOTE | 2019-11-13 15:29 | EDM.PDOC ---
ED HPI GENERAL MEDICAL PROBLEM - General Chief Complaint: General Stated Complaint: SENT FROM [facility] Time Seen by Provider: 11/13/19 14:30 Source of Information: Reports: Patient, RN, RN Notes Reviewed History Limitations: Reports: No Limitations - History of Present Illness INITIAL COMMENTS - FREE TEXT/NARRATIVE: patient presents to ER from [facility] with complaint of low potassium. Patient states a few weeks ago her potassium was elevated, and she was told to stop taking her potassium. Patient returned for lab recheck, potassium at that time was 3.2. Patient was told to restart potassium once a day and then have labs rechecked a few days later. Patient failed to return to have lab work rechecked until today. potassium found to be 2.9 at that time, so patient sent to ER for potassium infusion. Patient states she has cirrhosis of the liver, and frequent problems with ascites. Patient states she had paracentesis 3 weeks ago. Has been told recently that cancer has been found, but she is unsure where. She follows up for that next week. Patient states she has had some palpitations, chest pains, shortness of breath over the past few weeks. Complains of being cold all the time, denies fever. Denies vomiting, admits to diarrhea which she attributes to the lactulose she takes. Onset: Gradual - Related Data Allergies Allergy/AdvReac Type Severity Reaction Status Date / Time codeine Allergy Fatigue Verified 10/20/19 17:38 famotidine [From Pepcid] Allergy Cannot Verified 10/20/19 17:38 Remember tramadol Allergy Nausea Verified 10/20/19 17:38 Home Meds: Home Meds Aspirin [Halfprin] 81 mg PO BRK 03/02/15 [History] Ferrous Sulfate 325 mg PO TID 06/03/19 [History] Nadolol [Corgard] 20 mg PO DAILY 06/03/19 [History] Pantoprazole [ProTONIX] 40 mg PO BID 06/03/19 [History] Potassium Chloride 20 meq PO DAILY 06/03/19 [History] Spironolactone [Aldactone] 100 mg PO BID 06/03/19 [History] metFORMIN HCl [Metformin HCl] 1,500 mg PO DAILY 06/03/19 [History] Lactulose [Cephulac] 10 gm PO QID cup 06/05/19 [Rx] Rifaximin [Xifaxan] 550 mg PO BID #60 tablet 06/05/19 [Rx] DULoxetine HCl [Cymbalta] 60 mg PO DAILY 10/20/19 [History] Furosemide 40 mg PO BID 10/20/19 [History] Gabapentin [Neurontin] 100 mg PO TID 10/20/19 [History] Gabapentin [Neurontin] 300 mg PO TID 10/20/19 [History] Past Medical History HEENT History: Reports: Hard of Hearing, Impaired Vision, Other (See Below) Other HEENT History: UPPER AND LOWER DENTURE PLATES Cardiovascular History: Reports: Hypertension, SOB on Exertion Respiratory History: Reports: COPD Gastrointestinal History: Reports: Chronic Constipation, Cirrhosis, GI Bleed, Other (See Below) Other Gastrointestinal History: "bands done" for bleeding Genitourinary History: Reports: None 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 Musculoskeletal History: peripheral neuropathy Neurological History: Reports: Other (See Below) Other Neuro History: HEPATIC ENCEPHALOPATHY Psychiatric History: Reports: Other (See Below) Other Psychiatric History: SHORT TERM MEMORY LOSS Endocrine/Metabolic History: Reports: Diabetes, Type II Hematologic History: Reports: Anemia, Blood Transfusion(s), Iron Deficiency Immunologic History: Reports: None Oncologic (Cancer) History: Reports: None Dermatologic History: Reports: Eczema - Infectious Disease History Infectious Disease History: Reports: Chicken Pox, Mumps - Past Surgical History Head Surgeries/Procedures: Reports: None HEENT Surgical History: Reports: None GI Surgical History: Reports: Colonoscopy, EGD, Other (See Below) Endocrine Surgical History: Reports: None Neurological Surgical History: Reports: None Musculoskeletal Surgical History: Reports: None Dermatological Surgical History: Reports: None Social & Family History - Family History Family Medical History: Unobtainable - Tobacco Use Smoking Status *Q: Never Smoker - Caffeine Use Caffeine Use: Reports: Coffee Other Caffeine Use: COFFEE DAILY 1 CUP - Living Situation & Occupation Living situation: Reports: , with Spouse Occupation: Disabled ED ROS GENERAL - Review of Systems Review Of Systems: Comprehensive ROS is negative, except as noted in HPI. ED EXAM, GENERAL - Physical Exam Exam: See Below Exam Limited By: No Limitations General Appearance: Alert, WD/WN, No Apparent Distress Eye Exam: Bilateral Eye: EOMI, Normal Inspection Ears: Normal External Exam, Hearing Grossly Normal Nose: Normal Inspection Throat/Mouth: Normal Inspection, Normal Voice, No Airway Compromise Head: Atraumatic, Normocephalic Neck: Normal Inspection, Supple, Non-Tender, Full Range of Motion Respiratory/Chest: No Respiratory Distress, Lungs Clear, Normal Breath Sounds, No Accessory Muscle Use, Chest Non-Tender Cardiovascular: Normal Peripheral Pulses, Regular Rate, Rhythm, No Edema, No Gallop, No JVD, No Murmur, No Rub Peripheral Pulses: 2+: Radial (L), Radial (R) GI/Abdominal: Normal Bowel Sounds, Soft, Distended, Tender (Female) Exam: Deferred Rectal (Female) Exam: Deferred Back Exam: Normal Inspection Extremities: Normal Inspection, Normal Range of Motion, Non-Tender, Normal Capillary Refill, No Pedal Edema Neurological: Alert, Oriented Psychiatric: Normal Affect, Normal Mood Skin Exam: Warm, Dry, Intact, Normal Color, No Rash Lymphatic: No Adenopathy Course - Vital Signs Last Recorded V/S: Last Vital Signs Temp 97.8 F 11/13/19 13:52 Pulse 88 11/13/19 13:52 Resp 18 11/13/19 13:52 BP 124/58 L 11/13/19 13:52 Pulse Ox 92 L 11/13/19 13:52 - Orders/Labs/Meds Labs: Laboratory Tests 11/13/19 11/13/19 Range/Units 15:07 15:07 WBC 3.9 L (5.0-10.0) 10^3/uL RBC 2.90 L (4.2-5.4) 10^6/uL Hgb 9.5 L (12.0-16.0) g/dL Hct 27.8 L (37.0-47.0) % MCV 95.9 D (80-100) fL MCH 32.8 (27.0-34.0) pg MCHC 34.2 (33.0-35.0) g/dL Plt Count 94 L (150-450) 10^3/uL Neut % (Auto) 62.9 (42.2-75.2) % Lymph % (Auto) 19.7 L (20.5-50.1) % [place] % (Auto) 17.1 H (2-8) % Eos % (Auto) 0.0 L (1.0-3.0) % Baso % (Auto) 0.3 (0.0-1.0) % Sodium 127 L (135-145) mmol/L Potassium 2.8 L D (3.6-5.0) mmol/L Chloride 99 L (101-111) mmol/L Carbon Dioxide 20.0 L (21.0-31.0) mmol/L Anion Gap 10.8 BUN 18 (7-18) mg/dL Creatinine 1.0 (0.6-1.3) mg/dL Est Cr Clr Drug Dosing 51.14 mL/min Estimated GFR (MDRD) 56 BUN/Creatinine Ratio 18.00 Glucose 159 H (74-105) mg/dL Calcium 8.7 (8.4-10.2) mg/dl Magnesium 1.7 L (1.8-2.5) mg/dL Total Bilirubin 1.3 H (0.2-1.0) mg/dL AST 28 (10-42) IU/L ALT 22 (10-60) IU/L Alkaline Phosphatase 153 H (42-121) IU/L Total Protein 7.4 (6.7-8.2) g/dl Albumin 3.3 (3.2-5.5) g/dl Globulin 4.1 Albumin/Globulin Ratio 0.80 Meds: Medications Discontinued Medications Generic Name Dose Route Start Last Admin Trade Name Freq PRN Reason Stop Dose Admin Potassium Chloride 20 meq/ 100 mls @ 50 mls/hr 11/13/19 15:39 11/13/19 16:05 Premix IV 11/13/19 17:38 50 mls/hr ONETIME ONE Administration Sodium Chloride 1,000 mls @ 999 mls/hr 11/13/19 15:39 11/13/19 16:03 Normal Saline IV 11/13/19 16:39 999 mls/hr .BOLUS ONE Administration Potassium Chloride 40 meq 11/13/19 15:41 11/13/19 16:05 Klor-Con 10 PO 11/13/19 15:42 40 meq ONETIME ONE Administration Departure - Departure Time of Disposition: 18:30 Disposition: Home, Self-Care 01 Condition: Fair Clinical Impression: Hypokalemia Liver cirrhosis Qualifiers: Hepatic cirrhosis type: unspecified hepatic cirrhosis Ascites presence: with ascites Qualified Code(s): K74.60 - Unspecified cirrhosis of liver - Discharge Information *PRESCRIPTION DRUG MONITORING PROGRAM REVIEWED*: No *COPY OF PRESCRIPTION DRUG MONITORING REPORT IN PATIENT HELEN: No Instructions: Hypokalemia, Potassium Content of Foods Referrals: PCP,Unobtain [Primary Care Provider] - Forms: ED Department Discharge Additional Instructions: Follow up with your primary care facility for recheck of labs Take Potassium 20meq daily Sepsis Event Note - Evaluation Sepsis Screening Result: No Definite Risk - Focused Exam Date Exam was Performed: 11/18/19 Time Exam was Performed: 01:38
[2019-11-13 15:30] LABS: ANION GAP 10.8
[2019-11-13] MEDS: Sodium Chloride 0.9% 1,000 ML IV ONE (16:03)
[2019-11-13] MEDS: Potassium Chloride 20 MEQ in Premix Bag 1 BAG IV ONE (16:05)
[2019-11-13] MEDS: Potassium Chloride 10 MEQ Tab.ER PO ONE (16:05)
== END 2019-11-13 18:30 | disposition home or self-care (01) ==
LOC: DL.ED 13:48
DX: K74.60 Unspecified cirrhosis of liver (principal); E87.6 Hypokalemia; Z79.82 Long term (current) use of aspirin; Z88.5 Allergy status to narcotic agent
CPT/HCPCS: 36415; 80053; 83735; 85025; 93005; 96365; 96366; 99284; 99285-25; A9270-GY; J3480; J7030

== ENCOUNTER 2020-04-14 17:59 | Emergency (ER) | payer OTHER, MEDICARE, MEDICAID ==
[2020-04-14 18:10] VITALS: BP 128/59; PULSE 109
--- NOTE | 2020-04-14 18:37 | EDM.PDOC ---
Scribed by Vandana Aden 04/14/20 [id number] for Charisse Degroot NP ED HPI GENERAL MEDICAL PROBLEM - General Chief Complaint: Skin Complaint Stated Complaint: HAS PARACENTESIS DRAINING Time Seen by Provider: 04/14/20 18:12 Source of Information: Reports: Patient, RN, RN Notes Reviewed History Limitations: Reports: No Limitations - History of Present Illness INITIAL COMMENTS - FREE TEXT/NARRATIVE: A 64-year-old female with history of malignant ascites who presents to the ER for a dressing change at paracentesis site. Patient states she had a paracentesis 2 days ago and has not changed the dressing because she was afraid that something might happen. Hospice visited her today and she did not complain about it. She denies any fever, chills, pain, shortness of breath, palpitations or chest pain. She gets a paracentesis every week. She has no other concerns at this time. Quality: Reports: Ache Severity: Mild Improves with: Reports: None Worsens with: Reports: None Associated Symptoms: Reports: No Other Symptoms - Related Data Allergies Allergy/AdvReac Type Severity Reaction Status Date / Time codeine Allergy Fatigue Verified 04/14/20 18:07 famotidine [From Pepcid] Allergy Cannot Verified 04/14/20 18:07 Remember tramadol Allergy Nausea Verified 04/14/20 18:07 Home Meds: Home Meds Aspirin [Halfprin] 81 mg PO BRK 03/02/15 [History] Ferrous Sulfate 325 mg PO TID 06/03/19 [History] Pantoprazole [ProTONIX] 40 mg PO BID 06/03/19 [History] Potassium Chloride 20 meq PO DAILY 06/03/19 [History] Spironolactone [Aldactone] 100 mg PO BID 06/03/19 [History] metFORMIN HCl [Metformin HCl] 1,500 mg PO DAILY 06/03/19 [History] nadoloL [Corgard] 20 mg PO DAILY 06/03/19 [History] Lactulose [Cephulac] 10 gm PO QID cup 06/05/19 [Rx] Rifaximin [Xifaxan] 550 mg PO BID #60 tablet 06/05/19 [Rx] DULoxetine HCl [Cymbalta] 60 mg PO DAILY 10/20/19 [History] Furosemide 40 mg PO BID 10/20/19 [History] Gabapentin [Neurontin] 100 mg PO TID 10/20/19 [History] Gabapentin [Neurontin] 300 mg PO TID 10/20/19 [History] Past Medical History HEENT History: Reports: Hard of Hearing, Impaired Vision, Other (See Below) Other HEENT History: UPPER AND LOWER DENTURE PLATES Cardiovascular History: Reports: Hypertension, SOB on Exertion Respiratory History: Reports: COPD Gastrointestinal History: Reports: Chronic Constipation, Cirrhosis, GI Bleed, Other (See Below) Other Gastrointestinal History: "bands done" for bleeding Genitourinary History: Reports: None 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 Musculoskeletal History: peripheral neuropathy Neurological History: Reports: Other (See Below) Other Neuro History: HEPATIC ENCEPHALOPATHY Psychiatric History: Reports: Other (See Below) Other Psychiatric History: SHORT TERM MEMORY LOSS Endocrine/Metabolic History: Reports: Diabetes, Type II Hematologic History: Reports: Anemia, Blood Transfusion(s), Iron Deficiency Immunologic History: Reports: None Oncologic (Cancer) History: Reports: None Dermatologic History: Reports: Eczema - Infectious Disease History Infectious Disease History: Reports: Chicken Pox, Mumps - Past Surgical History Head Surgeries/Procedures: Reports: None HEENT Surgical History: Reports: None GI Surgical History: Reports: Colonoscopy, EGD, Other (See Below) Endocrine Surgical History: Reports: None Neurological Surgical History: Reports: None Musculoskeletal Surgical History: Reports: None Dermatological Surgical History: Reports: None Social & Family History - Family History Family Medical History: Unobtainable - Caffeine Use Caffeine Use: Reports: Coffee Other Caffeine Use: COFFEE DAILY 1 CUP - Living Situation & Occupation Living situation: Reports: , with Spouse Occupation: Disabled ED ROS GENERAL - Review of Systems Review Of Systems: Comprehensive ROS is negative, except as noted in HPI. ED EXAM, SKIN/RASH Exam: See Below Exam Limited By: No Limitations General Appearance: Alert, WD/WN, No Apparent Distress Respiratory/Chest: No Respiratory Distress, Lungs Clear, Normal Breath Sounds, No Accessory Muscle Use, Chest Non-Tender Cardiovascular: Normal Peripheral Pulses, Regular Rate, Rhythm, No Edema, No Gallop, No JVD, No Murmur, No Rub GI/Abdominal: Normal Bowel Sounds, Soft, Non-Tender, Distended (mildly), Other (Paracentesis site clean with dressing saturated with clear fluid. No other signs of infection noted. ) Neurological: Alert, Oriented Psychiatric: Normal Affect, Normal Mood, Anxious Skin: Intact Lymphatic: No Adenopathy Course - Vital Signs Last Recorded V/S: Last Vital Signs Temp 97.7 F 04/14/20 18:08 Pulse 109 H 04/14/20 18:08 Resp 18 04/14/20 18:08 BP 128/59 L 04/14/20 18:08 Pulse Ox 92 L 04/14/20 18:08 - Re-Assessments/Exams Free Text/Narrative Re-Assessment/Exam: Dressing change done with ABD applied. Encouraged patient to change dressing as needed. She has to follow up with IR on Saturday of next week. Patient verbalized understanding 04/14/20 18:36 Departure - Departure Time of Disposition: 18:33 Disposition: Home, Self-Care 01 Condition: Good Clinical Impression: Dressing change, S/P abdominal paracentesis - Discharge Information Instructions: How to Change Your Wound Dressing Forms: ED Department Discharge Additional Instructions: Encouraged patient to change dressing as needed. She has to follow up with IR on Saturday of next week. Patient verbalized understanding. Sepsis Event Note (ED) - Evaluation Sepsis Screening Result: No Definite Risk - Focused Exam Vital Signs: Vital Signs Temp Pulse Resp BP Pulse Ox 04/14/20 18:08 97.7 F 109 H 18 128/59 L 92 L I have read and agree with the documentation that has been completed regarding this visit. By signing this record, I attest that the documentation was completed in my physical presence and is an accurate record of the encounter.
== END 2020-04-14 18:36 | disposition home or self-care (01) ==
LOC: DL.ED 17:59
DX: Z48.815 Encounter for surgical aftercare following surgery on the digestive system (principal); I10 Essential (primary) hypertension; J44.9 Chronic obstructive pulmonary disease, unspecified; E11.42 Type 2 diabetes mellitus with diabetic polyneuropathy; Z79.82 Long term (current) use of aspirin; Z79.84 Long term (current) use of oral hypoglycemic drugs; Z79.899 Other long term (current) drug therapy; Z88.5 Allergy status to narcotic agent; Z88.8 Allergy status to other drugs, medicaments and biological substances
CPT/HCPCS: 99282